=== PATIENT | female | born 1990 | race Caucasian/White ===

== ENCOUNTER 2017-11-28 10:40 | Outpatient (CLI) | payer BC, SELFPAY ==
[2017-11-28 11:12] VITALS: BMI 23.2
[2017-11-28] MEDS: Betamethasone/Betamethasone 30 MG/5 ML Vial 12 MG IM (11:45)
--- NOTE | 2017-11-28 13:02 | OB.TRI.NOTE ---
History of Present Illness Date of Service: 11/28/17 Was patient seen by the physician?: No Reason For Visit: CELESTONE INJECTION Home Medications Medication Instructions Recorded Cetirizine HCl [Zyrtec] 10 mg PO DAILY 11/28/17 Hydroxychloroquine [Plaquenil] 300 mg PO DAILYCM 11/28/17 Levothyroxine [Synthroid] 125 mcg PO DAILY 11/28/17 Vit No.130/Iron/FA 1 tab PO DAILY 11/28/17 [ Tablet] Ursodiol 300 mg PO TID 11/28/17 Allergies soy Allergy (Verified 11/28/17 11:14) Anaphylaxis peanuts Allergy (Uncoded 11/28/17 11:14) Anaphylaxis Impression/Plan 27yo female with cholestasis of - here for second injection of celestone Celestone given Dc home
== END 2017-11-28 11:50 | disposition home or self-care (01) ==
LOC: WPOUT 10:43 → WP 10:44
PROVIDERS: Family Provider Family Medicine; PCP Family Medicine; Visit Provider Obstetrics & Gynecology
DX: O26.619 Liver and biliary tract disorders in pregnancy, unspecified trimester (principal); K83.1 Obstruction of bile duct
CPT/HCPCS: 96372; 99218; G0378; J0702

== ENCOUNTER 2017-11-29 08:30 | Inpatient (IN) | payer BC, SELFPAY ==
[2017-11-29 08:02] VITALS: BMI 23.6
[2017-11-29 08:23] LABS: ROM Internal Control Test YES-OK TO RESULT pt. (Internal QC)
[2017-11-29 08:24] LABS: ROM Patient Test POSITIVE (Negative)
[2017-11-29] MEDS: Lactated Ringers 1,000 ML 50 ML IV ×2 (09:06→12:49)
--- NOTE | 2017-11-29 09:13 | PCM.HP.OB ---
History Date of Admission: 11/29/17 Final RETA: 12/28/17 Final RETA Source: LMP Gestational age: 35 Weeks and 6 Days History of this : @ 35.6 wks with spontaneous ROM at home approximately 5:15am. Pt is dated by her LMP c/w first trimester u/s. Pertinent Past Medical History: PMH: Systemic Lupus Erythematousus, H/o Cholestasis with previous and with this , Hypothyroidism PSX: Thryoid ablation Allergies melon Allergy (Verified 11/29/17 08:14) Shortness of breath soy Allergy (Verified 11/28/17 11:14) Anaphylaxis mulberry Allergy (Uncoded 11/29/17 08:15) Shortness of breath peanuts Allergy (Uncoded 11/28/17 11:14) Anaphylaxis Current Medications Acetaminophen (Tylenol) 325 - 650 mg PO Q4H PRN PRN PRN Reason: PAIN OR FEVER >100.4F Al Hydroxide/Mg Hydroxide (Mylanta Ii) 15 - 30 ml PO Q4H PRN PRN PRN Reason: INDIGESTION Citric Acid/Sodium Citrate (Bicitra) 30 ml PO UD PRN Lactated Ringer's () 1,000 mls @ 50 mls/hr IV .Q20H [facility] Last Admin: 11/29/17 09:06 Dose: 50 mls/hr Nalbuphine HCl (Nubain) 5 - 10 mg IV Q3H PRN PRN PRN Reason: PAIN (4-10/10) Ondansetron HCl (Zofran) 4 mg IV Q8H PRN PRN PRN Reason: NAUSEA Promethazine HCl (Phenergan) 6.25 - 12.5 mg IV Q4H PRN PRN; Protocol PRN Reason: IF NAUSEA PERSISTS Sodium Chloride () 5 - 15 ml IV UD [facility] Last Admin: 11/29/17 09:06 Dose: Not Given Physical Exam General: Alert, Oriented x3 Abdomen: Soft, Non Tender, Gravid Estimated gestational size: Appropriate for gestational size Presentation: Cephalic Cervix Dilation (cm): 3 Station: -2 Effacement (%): 80 Assessment/Plan 27yo @ 35.6 wks with SROM, Cholestasis of 1) Admit to L&D 2) Monitor FHR/TOCO 3) anticipate 4) LFTs 5) GBS neg, HIv neg, Rub imm, Syphils neg, HEP B neg, A+ 6) Augmentation with Pitocin
[2017-11-29 09:19] LABS: Hematocrit 37.9 % (37-47); Hemoglobin 12.9 g/dl (12.0-15.0); Mean Corpuscular Hgb 30.6 pg (27.0-32.0); Mean Platelet Vol. 11.5 fl (6.2-12.0); Platelet Count 173 K/mm3 (150-450); RBC Distribution Width CV 13.8 % (11.6-14.6); RBC Distribution Width SD 45.1 fl (35.1-43.9); Red Blood Count 4.21 M/mm3 (4.2-5.4); White Blood Count 14.3 K/mm3 (4.4-11.0)
--- NOTE | 2017-11-29 09:19 | HP.PCM_ITS ---
History Date of Admission: 11/29/17 Final RETA: 12/28/17 Final RETA Source: LMP Gestational age: 35 Weeks and 6 Days History of this : @ 35.6 wks with spontaneous ROM at home approximately 5:15am. Pt is dated by her LMP c/w first trimester u/s. Pertinent Past Medical History: PMH: Systemic Lupus Erythematousus, H/o Cholestasis with previous and with this , Hypothyroidism PSX: Thryoid ablation Allergies melon Allergy (Verified 11/29/17 08:14) Shortness of breath soy Allergy (Verified 11/28/17 11:14) Anaphylaxis mulberry Allergy (Uncoded 11/29/17 08:15) Shortness of breath peanuts Allergy (Uncoded 11/28/17 11:14) Anaphylaxis Current Medications Acetaminophen (Tylenol) 325 - 650 mg PO Q4H PRN PRN PRN Reason: PAIN OR FEVER >100.4F Al Hydroxide/Mg Hydroxide (Mylanta Ii) 15 - 30 ml PO Q4H PRN PRN PRN Reason: INDIGESTION Citric Acid/Sodium Citrate (Bicitra) 30 ml PO UD PRN Lactated Ringer's () 1,000 mls @ 50 mls/hr IV .Q20H [facility] Last Admin: 11/29/17 09:06 Dose: 50 mls/hr Nalbuphine HCl (Nubain) 5 - 10 mg IV Q3H PRN PRN PRN Reason: PAIN (4-10/10) Ondansetron HCl (Zofran) 4 mg IV Q8H PRN PRN PRN Reason: NAUSEA Promethazine HCl (Phenergan) 6.25 - 12.5 mg IV Q4H PRN PRN; Protocol PRN Reason: IF NAUSEA PERSISTS Sodium Chloride () 5 - 15 ml IV UD [facility] Last Admin: 11/29/17 09:06 Dose: Not Given Physical Exam General: Alert, Oriented x3 Abdomen: Soft, Non Tender, Gravid Estimated gestational size: Appropriate for gestational size Presentation: Cephalic Cervix Dilation (cm): 3 Station: -2 Effacement (%): 80 Assessment/Plan 27yo @ 35.6 wks with SROM, Cholestasis of 1) Admit to L&D 2) Monitor FHR/TOCO 3) anticipate 4) LFTs 5) GBS neg, HIv neg, Rub imm, Syphils neg, HEP B neg, A+ 6) Augmentation with Pitocin
[2017-11-29 09:22] LABS: Scan Indicated on CBC? Y/N NO
[2017-11-29 09:33] LABS: AST(SGOT) 47 U/L (15-37); Alanine Aminotransfer ALT/SGPT 89 U/L (13-56); Albumin, Serum 2.5 g/dL (3.2-5.0); Alkaline Phosphatase 113 U/L (45-117); Bilirubin, Direct 0.08 mg/dL (0.00-0.30); Globulin 3.7 g/dL (2.2-4.2); Protein, Total 6.2 g/dL (6.4-8.2)
[2017-11-29] MEDS: Oxytocin 30 units/NS 500 ml 30 UNITS/500 ML IV.SOLN IV (09:34)
--- NOTE | 2017-11-29 13:00 | PCM.PN.BLA ---
Progress Note pt seen at bedside, Forebag ruptured, clear. Continue to labor- pitocin at 4mu. VE: 7cm/80/-1
[2017-11-29] MEDS: Oxytocin 30 units/NS 500 ml 30 UNITS/500 ML IV.SOLN 334 UNITS IV (13:40)
--- NOTE | 2017-11-29 13:51 | OP.PCM_ITS ---
Vaginal Delivery Maternal Presentation: Spontaneous Rupture of Membranes Amniotic Membrane Rupture Type: Spontaneous at home Rupture of Membrane time: 05 Amniotic Fluid Description: Clear Final RETA: 12/28/17 Final RETA Source: LMP Gestational age: 35 Weeks and 6 Days Date of Procedure: 11/29/17 Pre-Operative Diagnosis: spontaneous ruputure of membranes, early labor , Cholestasis of preg Post-Operative Diagnosis: same, live female Surgery/ Procedure Performed: Spontaneous Vaginal Delivery Type of Anesthesia: None Description of Procedure: of live female infant born without complication. Delayed cord clamping. PEDS present for delivery due to . Presentation: Vertex Placental Delivery Description: Spontaneous Placenta Disposition: [facility] Cord Vessel Description: 3 Vessels Nuchal Cord Compression: Without compression Cord Entanglement: None Estimated Blood Loss: 150 Infant A gender: Female (1 minute): 8 (5 minute): 9 Episiotomy Description: None Laceration: Vaginal Extension/lac - repaired with 3-0 rapide, 1st degree Medications given after delivery: IV Pitocin Complications: None
[2017-11-29] MEDS: Oxytocin 30 units/NS 500 ml 30 UNITS/500 ML IV.SOLN 167 UNITS IV (14:10)
[2017-11-29] MEDS: 0.9% Saline Lock 10 ML Syringe IV (15:30)
[2017-11-29 19:45] VITALS: BP 99/56; PULSE 73; RESP 16; TEMP 37.4; O2SAT 99
[2017-11-29] MEDS: Hydroxychloroquine 200 MG Tablet 300 MG PO (19:52)
[2017-11-29 23:42] VITALS: BP 95/55; PULSE 69; RESP 16; TEMP 37.3; O2SAT 98
[2017-11-30] MEDS: Levothyroxine 125 MCG Tablet PO (05:08)
[2017-11-30 05:13] VITALS: BP 95/50; PULSE 69; RESP 17; TEMP 37.2; O2SAT 99
--- NOTE | 2017-11-30 08:37 | PCM.PN.OB ---
Subjective: pain well controlled, average lochia - Physical Exam General: Alert, Cooperative, No apparent distress Vital Signs Temp Pulse Resp BP Pulse Ox 98.9 F 69 17 95/50 L 99 11/30/17 05:13 11/30/17 05:13 11/30/17 05:13 11/30/17 05:13 11/30/17 05:13 Oxygen Delivery Method Room Air Weight: 60.5 kg Body Mass Index (BMI) 23.6 Intake and Output for Last 24 Hours 11/28/17 11/29/17 11/30/17 23:59 23:59 23:59 Intake Total 200 / 200 Output Total 800 / 800 Balance -600 / -600 Laboratory Tests Past 24 Hrs 11/29/17 11/29/17 11/29/17 08:55 08:55 08:55 WBC 14.3 H RBC 4.21 Hgb 12.9 Hct 37.9 MCV 90.0 MCH 30.6 MCHC 34.0 RDW 13.8 RDW Differential 45.1 H Plt Count 173 MPV 11.5 Total Bilirubin 0.30 Direct Bilirubin 0.08 AST 47 H ALT 89 H Alkaline Phosphatase 113 Total Protein 6.2 L Albumin 2.5 L Globulin 3.7 Blood Type A POSITIVE Antibody Screen NEGATIVE Medical Necessity - Tobacco Use Smoking Status: Never smoker Assessment/Plan PPD#1 doing well infant and doing well likely home tomorrow due to premature
[2017-11-30 09:30] VITALS: BP 94/54; PULSE 83; RESP 16; TEMP 37.2; O2SAT 98
[2017-11-30 10:50] VITALS: BP 96/61
[2017-11-30 11:50] VITALS: BP 101/53; PULSE 82; RESP 16; TEMP 37; O2SAT 98
--- NOTE | 2017-11-30 13:40 | NURSING ---
This library technology instructor reviewed the charting completed by the student nurse, Shamar Abdi and it is complete.
--- NOTE | 2017-11-30 13:44 | NURSING ---
This math and physics instructor reviewed the charting completed by Shamar Abdi, and it is complete.
[2017-11-30 15:38] VITALS: BP 100/48; PULSE 70; RESP 16; TEMP 36.6; O2SAT 99
[2017-11-30 19:53] VITALS: BP 103/56; PULSE 66; RESP 16; TEMP 36.9
[2017-11-30] MEDS: Hydroxychloroquine 200 MG Tablet 300 MG PO (20:21)
[2017-12-01 01:50] VITALS: BP 100/60; PULSE 57; RESP 16; TEMP 36.8
[2017-12-01] MEDS: Levothyroxine 125 MCG Tablet PO (04:52)
[2017-12-01 07:55] VITALS: BP 107/67; PULSE 84; RESP 14; TEMP 36.4
--- NOTE | 2017-12-01 08:08 | PCM.PN.OB ---
Subjective: pt seen at bedside, doing well. pt reports good pain control. lochia mild. +BM. Breast feeding well. - Physical Exam General: Oriented x3 Abdomen: Soft, Non-Distended Extremities: No Calf Tenderness Vital Signs Temp Pulse Resp BP Pulse Ox 98.2 F 84 14 107/67 99 12/01/17 01:50 12/01/17 07:55 12/01/17 07:55 12/01/17 07:55 11/30/17 15:38 Oxygen Delivery Method Room Air Weight: 60.5 kg Body Mass Index (BMI) 23.6 Intake and Output for Last 24 Hours 11/29/17 11/30/17 12/01/17 23:59 23:59 23:59 Intake Total 200 / 200 Output Total 800 / 800 Balance -600 / -600 Medical Necessity - Tobacco Use Smoking Status: Never smoker Assessment/Plan PPD#2, doing well. 1) Routine care dc home today
== END 2017-12-01 10:00 | disposition home or self-care (01) | DRG 775 ==
LOC: WPOUT 08:42
PROVIDERS: Admitting Provider Obstetrics & Gynecology; Family Provider Family Medicine; PCP Family Medicine; Visit Provider Obstetrics & Gynecology
DX: O26.62 Liver and biliary tract disorders in childbirth (principal); K83.1 Obstruction of bile duct; O60.14X0 Preterm labor third trimester with preterm delivery third trimester, not applicable or unspecified; O99.12 Other diseases of the blood and blood-forming organs and certain disorders involving the immune mechanism complicating childbirth; M32.9 Systemic lupus erythematosus, unspecified; O70.0 First degree perineal laceration during delivery; O99.284 Endocrine, nutritional and metabolic diseases complicating childbirth; E03.9 Hypothyroidism, unspecified; Z3A.35 35 weeks gestation of pregnancy; Z79.899 Other long term (current) drug therapy; Z37.0 Single live birth
CPT/HCPCS: 59025; 59050; 80076; 84112; 85027; 86850; 86900; 99218; J7120; A4216; G0378

== ENCOUNTER → 2017-12-15 11:39 | Outpatient (CLI) | payer BC, SELFPAY ==
[2017-12-15 16:17] LABS: Thyroid Stim Hormone (TSH) 0.66 uIU/mL (0.358-3.74)
== END ==
PROVIDERS: Family Provider Family Medicine; PCP Family Medicine; Visit Provider Family Medicine
DX: E03.9 Hypothyroidism, unspecified (principal)
CPT/HCPCS: 36415; 84443

== ENCOUNTER → 2018-04-06 15:48 | Outpatient (CLI) | payer BC, SELFPAY ==
[2018-04-06 19:18] LABS: Free T3 2.2 pg/mL (2.18-3.98); T4 Free Direct 1.23 ng/dL (0.76-1.46); Thyroid Stim Hormone (TSH) 0.02 uIU/mL (0.358-3.74)
== END ==
PROVIDERS: Family Provider Family Medicine; PCP Family Medicine; Visit Provider Family Medicine
DX: E03.9 Hypothyroidism, unspecified (principal)
CPT/HCPCS: 36415; 84439; 84443; 84481

== ENCOUNTER → 2018-04-15 11:28 | Outpatient (CLI) | payer BC, SELFPAY | PROVIDERS: Family Provider Family Medicine; PCP Family Medicine; Visit Provider Family Medicine | DX: R20.0 Anesthesia of skin (principal); E03.9 Hypothyroidism, unspecified | CPT/HCPCS: 36415; 82330 ==

== ENCOUNTER → 2018-07-13 13:36 | Outpatient (CLI) | payer BC, SELFPAY ==
[2018-07-13 16:15] LABS: Free T3 2.5 pg/mL (2.18-3.98); T4 Free Direct 1.14 ng/dL (0.76-1.46); Thyroid Stim Hormone (TSH) 0.08 uIU/mL (0.358-3.74)
--- OUTSIDE RECORDS SUMMARY | 2018-09-08 02:50 | XMS RPT_ITS ---
:1990 Author Organization OHIP Support Name Relationship Address Phone JOSE CRAIG Unavailable [address] + [place], [place] [phone] NOT GIVEN Unavailable Unavailable Unavailable DOMINGO LOMBARDO Unavailable [address] Unavailable [place], [place] [phone] DOMINGO LOMBARDO Unavailable [address] + [place] [address] UE Unavailable Unavailable Unavailable DOMINGO LOMBARDO Unavailable [address] + [place] [address] UE Unavailable Unavailable Unavailable DOMINGO LOMBARDO Unavailable [address] + [place] [address] UE Unavailable Unavailable Unavailable JOSE CRAIG Unavailable [address] + [place], [place] [phone] NOT GIVEN Unavailable Unavailable Unavailable DOMINGO LOMBARDO Unavailable [address] Unavailable [place], [place] [phone] JOSE CRAIG Unavailable [address] + [place], [place] [phone] NOT GIVEN Unavailable Unavailable Unavailable DOMINGO LOMBARDO Unavailable [address] Unavailable [place], [place] [phone] DOMINGO LOMBARDO Unavailable [address] + [place] [address] UE Unavailable Unavailable Unavailable DOMINGO LOMBARDO Unavailable [address] + [place] [address] UE Unavailable Unavailable Unavailable DOMINGO LOMBARDO Unavailable [address] + [place] [address] UE Unavailable Unavailable Unavailable DOMINGO LOMBARDO Unavailable [address] + [place] [address] UE Unavailable Unavailable Unavailable RAFA, JOSE Unavailable [address] + [place], [place] [phone] NOT GIVEN Unavailable Unavailable Unavailable DOMINGO LOMBARDO Unavailable [address] Unavailable [place], [place] [phone] NOT GIVEN Unavailable Unavailable Unavailable JOSE CRAIG Unavailable [address] + [place], [place] [phone] NOT GIVEN Unavailable Unavailable Unavailable DOMINGO LOMBARDO Unavailable [address] Unavailable [place], [place] [phone] Care Team Providers Name Role Phone JO JOSEPH Attending Unavailable JESU OLIVEROS Attending Unavailable SCARLETT VELARDE Referring Unavailable SCARLETT VELARDE Attending Unavailable JO JOSEPH Attending Unavailable JO JOSEPH Attending Unavailable JONATHAN ALEXANDER ([facility]) Attending Unavailable JO JOSEPH Attending Unavailable VIRIDIANA FELIX Attending Unavailable GERALD DEXTER Attending Unavailable JO JOSEPH Referring Unavailable FELISHA KHAN ([facility]) Attending Unavailable JO JOSEPH Attending Unavailable JO JOSEPH Referring Unavailable GERALD DEXTER Attending Unavailable JO JOSEPH Referring Unavailable JO JOSEPH Attending Unavailable ERUM RUEDA ([facility]) Attending Unavailable ANNETTE AZEVEDO CNP Admitting Unavailable ANNETTE AZEVEDO CNP Attending Unavailable ANNETTE AZEVEDO CNP Primary Care Unavailable ANNE DENT Consulting Unavailable PROVIDER, UNKNOWN Consulting Unavailable PROVIDER, UNKNOWN Consulting Unavailable PROVIDER, UNKNOWN Consulting Unavailable ANNETTE AZEVEDO CNP Admitting Unavailable ANNETTE AZEVEDO CNP Attending Unavailable ANNETTE AZEVEDO CNP Primary Care Unavailable ANNE DENT Consulting Unavailable PROVIDER, UNKNOWN Consulting Unavailable PROVIDER, UNKNOWN Consulting Unavailable PROVIDER, UNKNOWN Consulting Unavailable HAYDEN CULP MD Admitting Unavailable HAYDEN CULP MD Attending Unavailable HAYDEN CULP MD Primary Care Unavailable ANNE DENT Consulting Unavailable PROVIDER, UNKNOWN Consulting Unavailable PROVIDER, UNKNOWN Consulting Unavailable PROVIDER, UNKNOWN Consulting Unavailable HAYDEN CULP MD Admitting Unavailable HAYDEN CULP MD Attending Unavailable HAYDEN CULP MD Primary Care Unavailable MADHURI MARTINEZ MD Consulting Unavailable PROVIDER, UNKNOWN Consulting Unavailable PROVIDER, UNKNOWN Consulting Unavailable ERUM RUEDA Admitting Unavailable EBENERUM CARVAJAL Attending Unavailable EBEN, ERUM Primary Care Unavailable MADHURI MARTINEZ MD Consulting Unavailable PROVIDER, UNKNOWN Consulting Unavailable PROVIDER, UNKNOWN Consulting Unavailable HAYDEN CULP MD Admitting Unavailable HAYDEN CULP MD Attending Unavailable HAYDEN CULP MD Primary Care Unavailable MIEDEL, MADHURI Consulting Unavailable PROVIDER, UNKNOWN Consulting Unavailable PROVIDER, UNKNOWN Consulting Unavailable Scarlett Velarde Admitting Unavailable Scarlett Velarde Attending Unavailable Scarlett Velarde Referring Unavailable Miedel, Madhuri Primary Care Unavailable Neyhart-Noonan, Viridiana Attending Unavailable Neyhart-Noonan, Viridiana Referring Unavailable Miedel, Madhuri Primary Care Unavailable Neyhart-Noonan, Viridiana Attending Unavailable Miedel, Madhuri Primary Care Unavailable Neyhart-Noonan, Viridiana Admitting Unavailable Miedel, Madhuri Attending Unavailable Miedel, Madhuri Primary Care Unavailable Miedel, Madhuri Attending Unavailable Miedel, Madhuri Primary Care Unavailable Miedel, Madhuri Attending Unavailable Miedel, Madhuri Primary Care Unavailable Miedel, Madhuri Attending Unavailable Miedel, Madhuri Primary Care Unavailable PROBLEMS PROBLEMS DATE TYPE CONDITION / CODE ATTENDING STATUS SOURCE 07/13/2018 Unknown E03.9 - Miedel, Madhuri Active [facility] Hypothyroidism, Community unspecified / Hospital E03.9(ICD-10) Repository 04/15/2018 Unknown R20.0 - Miedel, Madhuri Active [facility] Anesthesia of Community skin / Hospital R20.0(ICD-10) Repository 01/29/2018 Active Unknown / ERUM RUEDA Active [facility] UNK(Unknown) (HEAT PUMP INSTALLER) [place] Repository 10/15/2017 Active Supervision of NA Active [facility] other high risk [facility] [place] pregnancies, Repository third trimester / O09.893(ICD-10) 11/26/2017 Active 29 weeks NA Active [facility] gestation of [facility] [place] / Repository Z3A.29(ICD-10) 11/26/2017 Active 35 weeks NA Active [facility] gestation of [facility] [place] / Repository Z3A.35(ICD-10) 09/17/2017 Principle HypothyroidismJOLLY DANIELLE Active [facility] Diagnosis unspecified / [facility] E039(ICD-10) Hospital Repository 09/15/2017 Admitting HypothyroidismJOLLY DANIELLE Active [facility] Diagnosis unspecified / [facility] E039(ICD-10) Hospital Repository PROCEDURES PROCEDURES No Procedure Records FoundRESULTS RESULTS CBC Collected: 07/21/2018 Status: F Source: [facility] [place] 12:19 PM [facility] REPOSITORY TYPE CODE TESTS RESULT OUT OF RANGE REFERENCE UNITS LAB CBC(LOINC) CBC Result Comment: CBC-COMPLETE BLOOD COUNT LAB WBC(LOINC) 4.5 - 10.8 x 10EE3/UL WBC 5.7 LAB RBC(LOINC) 4.10 - x 10EE6/UL 5.30 RBC 5.21 LAB HEMOGLOBIN(LOINC) 12.0 - g/dl 16.0 HEMOGLOBIN 14.9 LAB HEMATOCRIT(LOINC) 34.0 - % 46.0 HEMATOCRIT 44.1 LAB MCV(LOINC) 80 - 99 fl MCV 85 LAB MCH(LOINC) 27 - 33 pg MCH 29 LAB MCHC(LOINC) 32 - 36 X10 3 MCHC 34 LAB RDW/CV(LOINC) 12.0 - % 15.6 RDW/CV 12.7 LAB PLATELET(LOINC) 150 - 450 x10EE3/UL PLATELET 207 LAB MPV(LOINC) 6.6 - 10.5 fl MPV 8.9 Result Comment: AUTOMATED DIFFERENTIAL LAB NEUT %(LOINC) 46.0 - 76.0 % NEUT % 59.3 LAB LYMPH %(LOINC) 20.0 - 45.0 % LYMPH % 29.8 LAB MONOS %(LOINC) 0.0 - 10.0 % MONOS % 7.7 LAB EO %(LOINC) 0.0 - 7.0 % EO % 2.3 LAB BASO %(LOINC) 0.0 - 2.0 % BASO % 0.9 LAB Lymph #(LOINC) 0.80 - 2.80 x10EE3/U L Lymph # 1.70 LAB Neut #(LOINC) 1.50 - 7.10 x10EE3/U L Neut # 3.40 LAB [place] #(LOINC) 0.20 - 1.00 x10EE3/U L [place] # 0.40 LAB EO #(LOINC) 0.00 - 0.50 x10EE3/U L EO # 0.10 LAB Baso #(LOINC) 0.00 - 0.10 x10EE3/U L Baso # 0.10 LAB MANUAL DIFF(LOINC) MANUAL DIFF N/A LAB MORPHOLOGY(LOINC ) MORPHOLOGY N/A Result Comment: {CD] Performed By: #### [id number] #### [facility],[address] [place] [address] URINALYSIS Collected: 07/21/2018 Status: F Source: [facility] 12:19 PM [facility] REPOSITORY TYPE CODE TESTS RESULT OUT OF REFERENCE UNITS RANGE LAB URINALYSIS (LOINC) URINALYSIS Result Comment: URINALYSIS LAB Specimen Type(LOINC) Specimen Clean Type catch LAB Color(LOINC) NORMAL: YELLOW Color p.yel LAB Clarity(LOINC) NORMAL: CLEAR Clarity clear LAB ph(LOINC) NORMAL: 5.0-8.0 ph 5 LAB Protein(LOINC) NORMAL: NEGATIVE Protein NEG LAB Glucose(LOINC) NORMAL: NORMAL Glucose NORM LAB Ketone(LOINC) NORMAL: NEGATIVE Ketone NEG LAB Bilirubin(LOINC) NORMAL: NEGATIVE Bilirubin NEG LAB Blood(LOINC) NORMAL: NEGATIVE Blood NEG LAB Urobilinog(LOINC) NORMAL: NORMAL Urobilinog NORM LAB Sp Cub Run(LOINC) NORMAL: 1.010-1.030 Sp [place] 1.020 LAB Nitrite(LOINC) NORMAL: NEGATIVE Nitrite NEG LAB Leukocytes(LOINC) NORMAL: NEGATIVE Leukocytes NEG LAB Microscopic(LOINC ) Microscopic NOT INDICATED Performed By: #### [id number] #### [place] [address] CMP WITH EGFR Collected: 07/21/2018 Status: F Source: [facility] 12:19 PM [facility] REPOSITORY TYPE CODE TESTS RESULT OUT OF RANGE REFERENCE UNITS LAB CMP with eGFR(LOINC) CMP with eGFR Result Comment: COMPREHENSIVE METABOLIC PANEL LAB SODIUM(LOINC) 136 - 145 mmol/l SODIUM 142 LAB POTASSIUM(LOINC) 3.5 - 5.1 mmol/L POTASSIUM 3.9 LAB CHLORIDE(LOINC) 98 - 107 mmol/L CHLORIDE 105 LAB CO2(LOINC) 21.0 - mmol/L 31.0 CO2 30.7 LAB GLUCOSE(LOINC) 74 - 106 mg/dl GLUCOSE Low 61 LAB BUN(LOINC) 6 - 20 mg/dl BUN High 21 LAB CREATININE(LOINC) 0.6 - 1.2 mg/dl CREATININE 0.8 LAB AST/SGOT(LOINC) 13 - 39 U/L AST/SGOT 20 LAB ALK PHOS(LOINC) 38 - 126 U/L ALK PHOS 54 LAB CALCIUM(LOINC) 8.6 - mg/dl 10.2 CALCIUM 9.7 LAB TOTAL 6.4 - 8.3 g/dl PROTEIN(LOINC) TOTAL PROTEIN 7.2 LAB ALBUMIN(LOINC) 3.4 - 4.8 g/dL ALBUMIN 4.4 LAB GLOBULIN(LOINC) 1.5 - 3.8 G/DL GLOBULIN 2.8 LAB A/G RATIO(LOINC) 0.9 - 1.6 A/G RATIO 1.6 LAB TOTAL BILI(LOINC) 0.0 - 1.5 mg/dl TOTAL BILI 0.6 LAB B/C RATIO(LOINC) 0 - 30 ratio B/C RATIO 26 LAB ALT/SGPT(LOINC) 8 - 35 U/L ALT/SGPT 22 LAB ANION GAP(LOINC) 10 - 20 mmol/L ANION GAP 10 LAB AGE(LOINC) years AGE 27 LAB eGFR(LOINC) 60 - 999 ML/MINUTE eGFR >60 LAB eGFR(AA)(LOINC) 60 - 999 ML/MINUTE eGFR(AA) >60 Result Comment: ACCORDING TO THE NATIONAL KIDNEY DISEASE EDUCATION PROGRAM(NKDE), A NORMAL eGFR IS A VALUE GREATER THAN OR EQUAL TO 60 ML/MIN/1.73 SQ METERS. CHRONIC KIDNEY DISEASE: <60mL/MIN/1.73 SQ METERS KIDNEY FAILURE: <15mL/MIN/1.73 SQ METERS THIS TEST SHOULD ONLY BE USED FOR PATIENTS 18 YEARS OF AGE AND OLDER. Performed By: #### [id number] #### [place] [address] URINE CREATININE AND Collected: 07/21/2018 Status: F Source: [facility] PROTEIN RATIO 12:19 PM [facility] REPOSITORY TYPE CODE TESTS RESULT OUT OF REFERENCE UNITS RANGE LAB CREATININE mg/dl UR(LOINC) CREATININE UR 108.2 LAB URINE TOTAL 0.00 - 10.00 mg/dL PROTEIN(LOINC) URINE TOTAL PROTEIN 7.00 LAB PC RATIO(LOINC) 0 - 10 mg/dL PC RATIO 0 Performed By: #### [id number] #### [place] [address] COMPLEMENT C3 [CCL] Collected: 07/21/2018 Status: F Source: [facility] 12:19 [facility] REPOSITORY TYPE CODE TESTS RESULT OUT OF REFERENCE UNITS RANGE LAB COMPLEMENT C3 [CCL](LOINC) COMPLEMENT C3 [CCL] Result Comment: _COMPLEMENT C3 [CCL]_ COMPLEMENT C3 [CCL] Reported: 07/22/2018 14:35 Status=F TEST RESULT FLAG RANGE UNITS C3 Complement 94 86-166 mg/dL 07/22/[email or web address] [address] Hollie Trujillo M.D. [id number] Performed By: #### [id number] #### [facility],[address] [place], [place] [id number] COMPLEMENT C4 [CCL] Collected: 07/21/2018 Status: F Source: [facility] 12:19 [facility] REPOSITORY TYPE CODE TESTS RESULT OUT OF REFERENCE UNITS RANGE LAB COMPLEMENT C4 [CCL](LOINC) COMPLEMENT C4 [CCL] Result Comment: _COMPLEMENT C4 [CCL]_ COMPLEMENT C4 [CCL] Reported: 07/22/2018 14:35 Status=F TEST RESULT FLAG RANGE UNITS C4 Complement 30 13-46 mg/dL 07/22/[email or web address] [facility] [employer] [address] [place] [address] Hollie Trujillo M.D. [id number] Performed By: #### [id number] #### [facility],[address] [place] [address] DNA ANTIBODY [CCL] Collected: 07/21/2018 Status: F Source: [facility] 12:19 PM [facility] REPOSITORY TYPE CODE TESTS RESULT OUT OF REFERENCE UNITS RANGE LAB DNA ANTIBODY [CCL](LOINC) DNA ANTIBODY [CCL] Result Comment: _DNA ANTIBODY [CCL]_ DNA ANTIBODY [CCL] Reported: 07/22/2018 14:35 Status=F TEST RESULT FLAG RANGE UNITS DNA Antibody <12 <30 IU/mL 07/22/[email or web address].ATLR Negative for ds DNA Antibodies Negative: <30 IU/mL Equivocal: 30-74 IU/mL Positive: >74 IU/mL [employer] [address] [place] [id number] Hollie Trujillo M.D. [id number] Performed By: #### [id number] #### [facility],[address] [place] [id number] C3 COMPLEMENT Collected: 07/21/2018 Status: F Source: [facility] 12:19 PM [facility] REFERENCE REPOSITORY TYPE CODE TESTS RESULT OUT OF REFERENCE UNITS RANGE LAB C3COMP(JOSÉ 86-166 mg/dL NC) C3 Complement 94 Performed By: #### DNAAB #### [facility] Immunology [address] [place] [address] #### C3COMP, C4COMP #### [facility] Routine Lab [address] [place] [address] C4 COMPLEMENT Collected: 07/21/2018 Status: F Source: [place] 12:19 PM [facility] REFERENCE REPOSITORY TYPE CODE TESTS RESULT OUT OF REFERENCE UNITS RANGE LAB C4COMP(JOSÉ 13-46 mg/dL NC) C4 Complement 30 Performed By: #### DNAAB #### [facility] Immunology [address] [place], [place] [id number] #### C3COMP, C4COMP #### [facility] Routine Lab [address] [place], [place] [phone] DNA ANTIBODY Collected: 07/21/2018 Status: F Source: [place] 12:19 PM [facility] REFERENCE REPOSITORY TYPE CODE TESTS RESULT OUT OF REFERENCE UNITS RANGE LAB DNAAB1(LOIN <30 IU/mL C) DNA Antibody <12 Performed By: #### DNAAB #### [facility] [address] [place], [place] [id number] #### C3COMP, C4COMP #### [facility] Routine Lab [address] [place], [place] [id number] FREE T3 Collected: 07/13/2018 Status: F Source: [place] 1:37 PM [facility] REPOSITORY TYPE CODE TESTS RESULT OUT OF RANGE REFERENCE UNITS LAB L501.98721 2.18-3.98 pg/mL Normal FREE T3 2.5 Performed By: #### L501.46710, L501.9520, L506.0400 #### [facility] [address] [facility] [place], [address] THYROID STIM HORMONE Collected: 07/13/2018 Status: F Source: [place] (TSH) 1:37 PM [facility] REPOSITORY TYPE CODE TESTS RESULT OUT OF RANGE REFERENCE UNITS LAB L501.9520 0.358-3.74 uIU/mL Low TSH 0.08 Performed By: #### L501.29153, L501.9520, L506.0400 #### [facility] [address] [facility] [place], [address] T4 FREE DIRECT Collected: 07/13/2018 Status: F Source: [place] 1:37 PM [facility] REPOSITORY TYPE CODE TESTS RESULT OUT OF RANGE REFERENCE UNITS LAB L506.0400 0.76-1.46 ng/dL Normal T4 FREE 1.14 DIRECT Performed By: #### L501.07712, L501.9520, L506.0400 #### [facility] [address] [facility] [place], [address] CALCIUM IONIZED Collected: 04/15/2018 Status: F Source: [place] 11:30 AM [facility] REPOSITORY TYPE CODE TESTS RESULT OUT OF RANGE REFERENCE UNITS LAB L3100.9600 4.5-5.6 mg/dL Normal IONIZED CA 5.3 Result Comment: Performed at: - [facility] [id number] Rehab Nurse: Volodymyr Brennan PhD, Phone: [phone] Performed By: #### L3100.9600 #### [facility] (refer to report for specific site) refer to report for address and phone number FREE T3 Collected: 04/06/2018 Status: F Source: [place] 3:50 PM [facility] REPOSITORY TYPE CODE TESTS RESULT OUT OF RANGE REFERENCE UNITS LAB L501.84271 2.18-3.98 pg/mL Normal FREE T3 2.2 Performed By: #### L501.41287, L501.9520, L506.0400 #### [facility] [address] [facility] [place], [address] THYROID STIM HORMONE Collected: 04/06/2018 Status: F Source: [place] (TSH) 3:50 PM [facility] REPOSITORY TYPE CODE TESTS RESULT OUT OF RANGE REFERENCE UNITS LAB L501.9520 0.358-3.74 uIU/mL Low TSH 0.02 Performed By: #### L501.87698, L501.9520, L506.0400 #### [facility] [address] [place], [address] T4 FREE DIRECT Collected: 04/06/2018 Status: F Source: [place] 3:50 PM [facility] REPOSITORY TYPE CODE TESTS RESULT OUT OF RANGE REFERENCE UNITS LAB L506.0400 0.76-1.46 ng/dL Normal T4 FREE 1.23 DIRECT Performed By: #### L501.12390, L501.9520, L506.0400 #### [facility] [address] [facility] [place], [address] T4-FREE (FREE Collected: 01/29/2018 Status: F Source: [facility] THYROXINE) 6:54 PM [facility] REPOSITORY TYPE CODE TESTS RESULT OUT OF RANGE REFERENCE UNITS LAB T4 0.61 - 1.12 ng/dl FREE(LOINC) High T4 FREE 1.29 Result Comment: *SPECIMENS FROM PATIENTS WHO ARE UNDERGOING BIOTIN THERAPY AND/OR INGESTING BIOTIN SUPPLEMENTS MAY HAVE FALSE HIGH RESULTS. Performed By: #### [id number] #### [facility],[address] [place] [address] TSH Collected: 01/29/2018 Status: F [facility] REPOSITORY TYPE CODE TESTS RESULT OUT OF RANGE REFERENCE UNITS LAB TSH(LOINC) 0.34 - 5.60 uIU/ml Low TSH 0.01 Performed By: #### [id number] #### [facility],[address] [place] [address] T4 (THYROXINE) TOTAL Collected: 01/29/2018 Status: F Source: [facility] 6:54 [facility] REPOSITORY TYPE CODE TESTS RESULT OUT OF RANGE REFERENCE UNITS LAB T4 (THYROXINE) TOTAL(LOINC ) T4 (THYROXINE) TOTAL Result Comment: THYROXINE(T4) LAB T4(LOINC) 6.0 - 12.2 ug/dl T4 8.5 Performed By: #### [id number] #### [facility],[address] [place] [address] SGPT (ALT) Collected: 01/29/2018 Status: F Source: [place] [id number] [place] [address] REPOSITORY TYPE CODE TESTS RESULT OUT OF RANGE REFERENCE UNITS LAB ALT/SGPT(LO 8 - 35 U/L INC) ALT/SGPT 23 Performed By: #### [id number] #### [place] [address] SGOT (AST) Collected: 01/29/2018 Status: F Source: [address] REPOSITORY TYPE CODE TESTS RESULT OUT OF RANGE REFERENCE UNITS LAB AST/SGOT(LO 13 - 39 U/L INC) AST/SGOT 19 Performed By: #### [id number] #### [place] [address] T3, FREE Collected: 01/29/2018 Status: F Source: [place] [id number]:[address] [place] [address] REPOSITORY TYPE CODE TESTS RESULT OUT OF RANGE REFERENCE UNITS LAB T3, FREE(LOINC) T3, FREE Result Comment: _T3, FREE_ T3, FREE Reported: 02/02/2018 22:59 Status=F TEST RESULT FLAG RANGE UNITS T3, FREE 3.3 2.3-4.2 pg/mL 02/02/18.2311.rfl.LYN.AMRR .3051-0 Test Performed by [employer], [employer] [facility], [address] [place] [address] Javier Khan M.D., Ph.D., Director of Laboratories , [facility] [id number] Performed By: #### [id number] #### [facility],[address] [place] [address] PROGRESS Observed: 01/29/2018 Status: COMPLETED Source: [place] 2:47 PM [facility]IN [facility] REPOSITORY HNO ID: [id number] Author: Erum Jean) Eben Service: (none) Author Type: Nurse Practitioner Type: Progress Notes Filed: 01/29/2018 3:06 PM Note Text: VISIT Roxann Lombardo is a 27 year old year old here for visit. Delivery Summary: Vaginal delivery Recovery: Feeding: Breast feeding problems: None Menses since delivery: Not resumed Menstrual pattern prior to : Regular periods [place] since delivery: Not resumed Depression: denies symptoms of depression. See depression screening tab. Emotional support: Yes, family Bowel symptoms: Negative for abdominal discomfort, blood in stools or black stools and change in bowel habits Bladder symptoms: No dysuria, gross hematuria, urinary frequency, urinary urgency, or incontinence Other issues: None Last Pap: 2017 normal HPV: N/A PAST MEDICAL HISTORY Diagnosis Date - Cholestasis of , antepartum with 1st - Hypothyroidism hisdtory of treatment for Graves Disease - SLE (systemic lupus erythematosus) (HCC) PAST SURGICAL HISTORY Procedure Laterality Date - [place] THYROID ABLATION THERAPY 92429 FAMILY HISTORY Problem Relation Age of Onset - IBS [OTHER] Father - Diverticulitis [OTHER] Maternal Grandmother - Macular degeneration [OTHER] Maternal Grandmother - Heart Maternal Grandfather - Cancer Maternal Grandfather Pancreatic - Psychiatry Paternal Grandfather Bipolar - Thyroid Other - Cancer Other ? ovarian SOCIAL HISTORY Social History Marital status: Spouse name: Domingo Years of education: 13 Number of children: 1 Occupational History Occupation Employer [employer] Social History Main Topics Smoking status: Never Smoker Smokeless tobacco: Never Used Alcohol use: No Drug use: No Sexual activity: Yes Partners with: Male PHYSICAL EXAMINATION: BP 96/56 Wt 111 lb (50.3kg) GENERAL: pleasant, female in no apparent distress HEENT: Normocephalic, atraumatic, mucus membranes moist and no lesions NECK: Supple, full range of motion, no adenopathy and thyroid normal DERMATOLOGY: Normal, without lesions, non-icteric and non-hirsute BREAST: soft, non-tender, symmetric, no dominant mass, normal nipple-areolar complex, no lymphadenopathy and no nipple discharge CHEST: Normal inspiratory effort ABDOMEN: soft, non-tender and no masses. . PELVIC: external genitalia normal, normal Bartholin's glands, urethra, Longoria's glands, no vulvar lesions, no cervical lesions, good vaginal support, physiologic discharge present, normal appearing perineal body and perianal region, well estrogenized BIMANUAL: uterus normal size, shape and consistency, no adnexal masses, non-tender and no cervical motion tenderness NEURO: alert and oriented x3,exam grossly non-focal EXTREMITIES: normal ASSESSMENT AND PLAN: 27 year old status post with normal course. Contraception plan: condoms weight gain: Goal set for 10% of body weight over 6 months. Discussed diet and exercise. Thyroid and AST/ALT ordered-pt having done at another hospital Follow up: RTC for annual exams and PRN Erum Rueda APRN.CNP PROGRESS Observed: 01/29/2018 Status: COMPLETED Source: [place] 2:47 PM [facility] REPOSITORY O ID: [id number] Author: Erum Rueda Service: (none) Author Type: Nurse Practitioner Type: Progress Notes Filed: 01/29/2018 3:06 PM Note Text: This note was created using NoteWriter. Subjective Roxann Lombardo is a 27 year old female. Review of Systems Objective BP 96/56 Wt 111 lb (50.3 kg) BMI 19.35 kg/m? Physical Exam Assessment and Plan CBC Collected: 01/21/2018 Status: F Source: [facility] [place] 12:40 PM [facility] REPOSITORY TYPE CODE TESTS RESULT OUT OF RANGE REFERENCE UNITS LAB CBC(LOINC) CBC Result Comment: CBC-COMPLETE BLOOD COUNT LAB WBC(LOINC) 4.5 - 10.8 x 10EE3/UL WBC 6.2 LAB RBC(LOINC) 4.10 - x 10EE6/UL 5.30 RBC 4.92 LAB HEMOGLOBIN(LOINC) 12.0 - g/dl 16.0 HEMOGLOBIN 14.6 LAB HEMATOCRIT(LOINC) 34.0 - % 46.0 HEMATOCRIT 42.2 LAB MCV(LOINC) 80 - 99 fl MCV 86 LAB MCH(LOINC) 27 - 33 pg MCH 30 LAB MCHC(LOINC) 32 - 36 X10 3 MCHC 35 LAB RDW/CV(LOINC) 12.0 - % 15.6 RDW/CV 12.5 LAB PLATELET(LOINC) 150 - 450 x10EE3/UL PLATELET 211 LAB MPV(LOINC) 6.6 - 10.5 fl MPV 9.0 Result Comment: AUTOMATED DIFFERENTIAL LAB NEUT %(LOINC) 46.0 - 76.0 % NEUT % 57.0 LAB LYMPH %(LOINC) 20.0 - 45.0 % LYMPH % 26.3 LAB MONOS %(LOINC) 0.0 - 10.0 % MONOS % 7.7 LAB EO %(LOINC) 0.0 - 7.0 % EO % High 8.4 LAB BASO %(LOINC) 0.0 - 2.0 % BASO % 0.6 LAB Lymph #(LOINC) 0.80 - 2.80 x10EE3/U L Lymph # 1.60 LAB Neut #(LOINC) 1.50 - 7.10 x10EE3/U L Neut # 3.60 LAB [place] #(LOINC) 0.20 - 1.00 x10EE3/U L [place] # 0.50 LAB EO #(LOINC) 0.00 - 0.50 x10EE3/U L EO # 0.50 LAB Baso #(LOINC) 0.00 - 0.10 x10EE3/U L Baso # 0.00 LAB MANUAL DIFF(LOINC) MANUAL DIFF N/A LAB MORPHOLOGY(LOINC ) MORPHOLOGY N/A Result Comment: {CD] Performed By: #### [id number] #### [facility],[address] [place] [address] URINE TOTAL PROTEIN Collected: 01/21/2018 Status: F Source: [facility] [place] 12:40 PM [facility] REPOSITORY TYPE CODE TESTS RESULT OUT OF REFERENCE UNITS RANGE LAB URINE TOTAL 0.00 - 10.00 mg/dL PROTEIN(LOIN C) High URINE TOTAL 14.00 PROTEIN Performed By: #### [id number] #### [facility],[address] [place] [address] URINALYSIS Collected: 01/21/2018 Status: F Source: [facility] 12:40 PM [facility] REPOSITORY TYPE CODE TESTS RESULT OUT OF REFERENCE UNITS RANGE LAB URINALYSIS (LOINC) URINALYSIS Result Comment: URINALYSIS LAB Specimen Type(LOINC) Specimen Type UNSPECIFIED LAB Color(LOINC) NORMAL: YELLOW Color farrah LAB Clarity(LOINC) NORMAL: CLEAR Clarity clear LAB ph(LOINC) NORMAL: 5.0-8.0 ph 5 LAB Protein(LOINC) NORMAL: NEGATIVE Protein NEG LAB Glucose(LOINC) NORMAL: NORMAL Glucose NORM LAB Ketone(LOINC) NORMAL: NEGATIVE Ketone NEG LAB Bilirubin(LOINC) NORMAL: NEGATIVE NEG Bilirubin LAB Blood(LOINC) NORMAL: NEGATIVE Blood 10 Abnormal LAB Urobilinog(LOINC NORMAL: ) NORMAL NORM Urobilinog LAB Sp NORMAL: [place](LOINC) 1.010-1.030 Sp 1.025 [place] LAB Nitrite(LOINC) NORMAL: NEGATIVE Nitrite NEG LAB Leukocytes(LOINC NORMAL: ) NEGATIVE 100 Abnormal Leukocytes LAB Microscopic(LOIN C) SEE Microscopic BELOW Result Comment: MICROSCOPIC LAB Wbc(LOINC) 0-5/hpf Wbc 1-5 LAB Rbc(LOINC) 0-3/hpf Rbc 0-5 LAB Casts(LOINC) Casts NONE LAB Crystals(LOINC) Crystals NONE LAB Amorphous(LOINC) Amorphous NONE LAB Bacteria(LOINC) Bacteria TRACE LAB Epi Cells(LOINC) Epi Cells OCC LAB Mucous(LOINC) Mucous 1+ LAB Yeast(LOINC) Yeast NONE Performed By: #### [id number] #### [facility],[address] [place] [address] CMP WITH EGFR Collected: 01/21/2018 Status: F Source: [facility] 12:40 PM [facility] REPOSITORY TYPE CODE TESTS RESULT OUT OF RANGE REFERENCE UNITS LAB CMP with eGFR(LOINC) CMP with eGFR Result Comment: COMPREHENSIVE METABOLIC PANEL LAB SODIUM(LOINC) 136 - 145 mmol/l SODIUM 141 LAB POTASSIUM(LOINC) 3.5 - 5.1 mmol/L POTASSIUM 3.9 LAB CHLORIDE(LOINC) 98 - 107 mmol/L CHLORIDE 105 LAB CO2(LOINC) 21.0 - mmol/L 31.0 CO2 28.3 LAB GLUCOSE(LOINC) 74 - 106 mg/dl GLUCOSE 81 LAB BUN(LOINC) 6 - 20 mg/dl BUN 20 LAB CREATININE(LOINC) 0.6 - 1.2 mg/dl CREATININE 0.8 LAB AST/SGOT(LOINC) 13 - 39 U/L AST/SGOT 16 LAB ALK PHOS(LOINC) 38 - 126 U/L ALK PHOS 59 LAB CALCIUM(LOINC) 8.6 - mg/dl 10.2 CALCIUM 9.2 LAB TOTAL 6.4 - 8.3 g/dl PROTEIN(LOINC) TOTAL PROTEIN 6.4 LAB ALBUMIN(LOINC) 3.4 - 4.8 g/dL ALBUMIN 4.0 LAB GLOBULIN(LOINC) 1.5 - 3.8 G/DL GLOBULIN 2.4 LAB A/G RATIO(LOINC) 0.9 - 1.6 A/G High RATIO 1.7 LAB TOTAL BILI(LOINC) 0.0 - 1.5 mg/dl TOTAL BILI 0.5 LAB B/C RATIO(LOINC) 0 - 30 ratio B/C RATIO 25 LAB ALT/SGPT(LOINC) 8 - 35 U/L ALT/SGPT 21 LAB ANION GAP(LOINC) 10 - 20 mmol/L ANION GAP 12 LAB AGE(LOINC) years AGE 27 LAB eGFR(LOINC) 60 - 999 ML/MINUTE eGFR >60 LAB eGFR(AA)(LOINC) 60 - 999 ML/MINUTE eGFR(AA) >60 Result Comment: ACCORDING TO THE NATIONAL KIDNEY DISEASE EDUCATION PROGRAM(NKDE), A NORMAL eGFR IS A VALUE GREATER THAN OR EQUAL TO 60 ML/MIN/1.73 SQ METERS. CHRONIC KIDNEY DISEASE: <60mL/MIN/1.73 SQ METERS KIDNEY FAILURE: <15mL/MIN/1.73 SQ METERS THIS TEST SHOULD ONLY BE USED FOR PATIENTS 18 YEARS OF AGE AND OLDER. Performed By: #### [id number] #### [facility],[address] [place] [address] URINE CREATININE,RANDOM Collected: Status: F Source: [place] 01/21/2018 12:40 PM [facility] REPOSITORY TYPE CODE TESTS RESULT OUT OF REFERENCE UNITS RANGE LAB CREATININE mg/dl UR(LOINC) CREATININE UR 173.9 Performed By: #### [id number] #### [facility],[address] [place], [place] [id number] C3, COMPLEMENT [QUEST] Collected: 01/21/2018 Status: F [facility] REPOSITORY TYPE CODE TESTS RESULT OUT OF REFERENCE UNITS RANGE LAB C3, COMPLEMENT [QUEST](LOINC) C3, COMPLEMENT [QUEST] Result Comment: _C3, COMPLEMENT_ COMPLEMENT COMPONENT C3C Reported: 01/23/2018 15:06 Status=F TEST RESULT FLAG RANGE UNITS COMPLEMENT COMPONENT C3C 73 L 83-193 mg/dL 01/23/18.1518.rfl.COMPLETE.AMRR .4485-9 Test Performed by [employer], [employer] [facility], [address] [place] [id number] Javier Khan M.D., Ph.D., Director of Laboratories , [place] [id number] Performed By: #### [id number] #### [facility],[address] [place], [place] [id number] C4, COMPLEMENT [QUEST] Collected: 01/21/2018 Status: F [facility] REPOSITORY TYPE CODE TESTS RESULT OUT OF REFERENCE UNITS RANGE LAB C4, COMPLEMENT [QUEST](LOINC) C4, COMPLEMENT [QUEST] Result Comment: _C4, COMPLEMENT_ COMPLEMENT COMPONENT C4C Reported: 01/23/2018 15:06 Status=F TEST RESULT FLAG RANGE UNITS COMPLEMENT COMPONENT C4C 27 15-57 mg/dL 01/23/18.1518.rfl.COMPLETE.AMRR .4498-2 Test Performed by [facility], [employer] [facility], [address] [place] [id number] Javier Khan M.D., Ph.D., Director of Laboratories , [facility] [id number] Performed By: #### [id number] #### [facility],[address] [place] [address] DNA DOUBLE STRANDED Collected: 01/21/2018 Status: F Source: [facility] AB [QUEST] 12:40 PM [facility] REPOSITORY TYPE CODE TESTS RESULT OUT OF REFERENCE UNITS RANGE LAB DNA DOUBLE STRANDED AB [QUEST](LOINC) DNA DOUBLE STRANDED AB [QUEST] Result Comment: _DNA DOUBLE STRANDED AB_ DNA (DS) ANTIBODY Reported: 01/25/2018 17:18 Status=F TEST RESULT FLAG RANGE UNITS DNA (DS) ANTIBODY 1 <=4 IU/mL 01/25/18.1730.rfl.COMPLETE.AMRR .5130-0 Value Interpretation <or=4 IU/mL: Negative 5 - 9 IU/mL: Indeterminate >or=10 IU/mL: Positive Test Performed by [employer], [employer], [address] [place] [id number] Javier Khan M.D., Ph.D., Director of Laboratories , [facility] [id number] Performed By: #### [id number] #### [facility],[address] [place] [address] THYROID STIM HORMONE Collected: 12/15/2017 Status: F Source: [place] (TSH) 11:41 AM [facility] REPOSITORY TYPE CODE TESTS RESULT OUT OF RANGE REFERENCE UNITS LAB L501.9520 0.358-3.74 uIU/mL Normal TSH 0.66 Performed By: #### L501.9520 #### [facility] [address] [place] [address], [id number] PROGRESS Observed: 12/02/2017 Status: COMPLETED Source: [place] 3:51 PM [facility] REPOSITORY HNO ID: [id number] Author: Celsa Marquez LPN Service: (none) Author Type: (none) Type: Progress Notes Filed: 12/02/2017 3:52 PM Note Text: Pt delivered via at [facility] on 11/28/[address] Noonan. See OB Outcome note Celsa Marquez LPN HOSP Observed: 12/02/2017 Status: COMPLETED Source: [place] 12:00 AM [facility] REPOSITORY Patient Update (WOOB) ROXANN LOMBARDO ([id number]) 1990 F Date Time Provider Department 12/02/17 VIRIDIANA FELIX During your visit today, we recorded the following information about you: Celsa Marquez LPN 12/02/2017 3:52 PM Signed Pt delivered via at [facility] on 11/28/[address] Noonan. See OB Outcome note Celsa Naye BONDS Allergies As of Date: 12/02/2017 Noted Allergy Reaction MELON 05/11/2017 10 - Anaphylaxis 12 - Shortness of Breath Comments: cantaloupe, watermelon MULBERRY 05/11/2017 14 - Other: See Comments Comments: tested positive NUT - UNSPECIFIED 05/11/2017 9 - Itching 12 - Shortness of Breath Comments: peanuts, walnuts, hazelnuts , soy SEASONAL ALLERGIES 05/11/2017 14 - Other: See Comments SOY 05/11/2017 7 - Swelling 12 - Shortness of Breath Date Reviewed: 11/27/2017 Reviewed by: Gerald Dexter - Fully Assessed Prescriptions as of 12/02/2017 Sig: LEVOTHYROXINE 125 MCG TABLET Take 1 tablet by mouth once d* URSODIOL 300 MG CAPSULE Take 1 capsule by mouth three* BLOOD-GLUCOSE METER 1 Each as directed. BLOOD SUGAR DIAGNOSTIC STRIPS 1 Strip four times daily. Use* LANCETS 1 Each four times daily. Use * URINE GLUCOSE-KETONES TEST ST* 1 Strip four times daily. VITAMIN,CALCIUM,MINE* Take 1 tablet by mouth. HYDROXYCHLOROQUINE 200 MG TAB* Take 300 mg by mouth once criss* ZYRTEC ORAL Take by mouth. Problem List As Of Date 12/02/2017 Noted Resolved History of liver disease [Z87.19] INVALID FOR* More... History of systemic lupus erythematosus (SLE) [*INVALID FOR* More... History of hypothyroidism [Z86.39] INVALID FOR* More... Supervision of other high risk pregnancies, thi*INVALID FOR* Supervision of other normal , antepart*INVALID FOR* More... Encounter Status:Closed by CELSA MARQUEZ LPN on 12/02/17 OPERATIVE REPORT Observed: 11/29/2017 Status: F Source: [place] 1:51 PM [facility] REPOSITORY [facility] Medical Records Department [address] [place] [address] Operative Report 11/29/17 1349 MR#: [id number] Acct: [id number] Name: ROXANN LOMBARDO Rep #: [id number] : 1990 27 From: Viridiana Noonan MD PCP: Madhuri Martinez MD Status: AD[facility] IN [id number] Maternal Presentation: Spontaneous Rupture of Membranes Amniotic Membrane Rupture Type: Spontaneous at home Rupture of Membrane time: 0515 Amniotic Fluid Description: Clear Final RETA: 12/28/17 Final RETA Source: LMP Gestational age: 35 Weeks and 6 Days Date of Procedure: 11/29/17 Pre-Operative Diagnosis: spontaneous ruputure of membranes, early labor, Cholestasis of preg Post-Operative Diagnosis: same, live female infant Surgery/ Procedure Performed: Spontaneous Vaginal Delivery Type of Anesthesia: None Description of Procedure: of live female infant born without complication. Delayed cord clamping. PEDS present for delivery due to . Presentation: Vertex Placental Delivery Description: Spontaneous Placenta Disposition: [facility] Cord Vessel Description: 3 Vessels Nuchal Cord Compression: Without compression Cord Entanglement: None Estimated Blood Loss: 150 Infant A gender: Female (1 minute): 8 (5 minute): 9 Episiotomy Description: None Laceration: Vaginal Extension/lac - repaired with 3-0 rapide, 1st degree Medications given after delivery: IV Pitocin Complications: None 11/29/17 1351 <Electronically signed by Viridiana Noonan MD> Date Viridiana Glynn MD CC: Viridiana Glynn MD; Madhuri Martinez MD Signed HISTORY AND PHYSICAL Observed: 11/29/2017 Status: F Source: [place] EXAM 9:19 AM [facility] REPOSITORY [facility] Medical Records Department [address] [place] [address] History and Physical 11/29/17912 MR#: [id number] Acct: [id number] Name: ROXANN LOMBARDO Rep #: [id number] : 1990 27 From: Viridiana Noonan MD PCP: Madhuri Martinez MD Status: ADM IN Y Location: [place] [address] History Date of Admission: 11/29/17 Final RETA: 12/28/17 Final RETA Source: LMP Gestational age: 35 Weeks and 6 Days History of this : @ 35.6 wks with spontaneous ROM at home approximately 5:15am. Pt is dated by her LMP c/w first trimester u/s. Pertinent Past Medical History: PMH: Systemic Lupus Erythematousus, H/o Cholestasis with previous and with this , Hypothyroidism PSX: Thryoid ablation Allergies melon Allergy (Verified 11/29/17 08:14) Shortness of breath soy Allergy (Verified 11/28/17 11:14) Anaphylaxis mulberry Allergy (Uncoded 11/29/17 08:15) Shortness of breath peanuts Allergy (Uncoded 11/28/17 11:14) Anaphylaxis Current Medications Acetaminophen (Tylenol) 325 - 650 mg PO Q4H PRN PRN PRN Reason: PAIN OR FEVER >100.4F Al Hydroxide/Mg Hydroxide (Mylanta Ii) 15 - 30 ml PO Q4H PRN PRN PRN Reason: INDIGESTION Citric Acid/Sodium Citrate (Bicitra) 30 ml PO UD PRN Lactated Ringer's () 1,000 mls @ 50 mls/hr IV .Q20H HETAL Last Admin: 11/29/17 09:06 Dose: 50 mls/hr Nalbuphine HCl (Nubain) 5 - 10 mg IV Q3H PRN PRN PRN Reason: PAIN (4-10/10) Ondansetron HCl (Zofran) 4 mg IV Q8H PRN PRN PRN Reason: NAUSEA Promethazine HCl (Phenergan) 6.25 - 12.5 mg IV Q4H PRN PRN; Protocol PRN Reason: IF NAUSEA PERSISTS Sodium Chloride () 5 - 15 ml IV UD HETAL Last Admin: 11/29/17 09:06 Dose: Not Given Physical Exam General: Alert, Oriented x3 Abdomen: Soft, Non Tender, Gravid Estimated gestational size: Appropriate for gestational size Presentation: Cephalic Cervix Dilation (cm): 3 Station: -2 Effacement (%): 80 Assessment/Plan 27yo @ 35.6 wks with SROM, Cholestasis of 1) Admit to L AND D 2) Monitor FHR/TOCO 3) anticipate 4) LFTs 5) GBS neg, HIv neg, Rub imm, Syphils neg, HEP B neg, A+ 6) Augmentation with Pitocin 11/29/17918 <Electronically signed by Viridiana Noonan MD> Date Viridiana Glynn MD Cosigner Signature: Date (if applicable) CC: Viridiana Glynn MD; Madhuri Martinez MD Signed CBC-COMPLETE BLOOD CNT Collected: 11/29/2017 Status: F Source: [place] NO DIFF 8:55 AM [facility] REPOSITORY TYPE CODE TESTS RESULT OUT OF RANGE REFERENCE UNITS LAB L100.1000 4.4-11.0 K/mm3 High WBC 14.3 LAB L100.1200 4.2-5.4 M/mm3 Normal RBC 4.21 LAB L100.1300 12.0-15.0 g/dl Normal HGB 12.9 LAB L100.1400 37-47 % Normal HCT 37.9 LAB L100.1500 81-99 fL Normal MCV 90.0 LAB L100.1600 27.0-32.0 pg Normal MCH 30.6 LAB L100.1700 32-36 g/gl Normal MCHC 34.0 LAB L100.1810 11.6-14.6 % Normal RDW CV 13.8 LAB L100.1820 35.1-43.9 fl High RDW SD 45.1 LAB L100.1900 150-450 K/mm3 Normal PLT 173 LAB L100.2000 6.2-12.0 fl Normal MPV 11.5 Performed By: #### L100.0500 #### [facility] [address] [place], [place], [id number] LIVER PROFILE Collected: 11/29/2017 Status: F Source: [place] 8:55 AM [facility] REPOSITORY TYPE CODE TESTS RESULT OUT OF RANGE REFERENCE UNITS LAB L501.1500 6.4-8.2 g/dL Low T PROT 6.2 LAB L501.1800 3.2-5.0 g/dL Low ALB 2.5 LAB L501.1950 2.2-4.2 g/dL Normal GLOB 3.7 LAB L501.4100 15-37 U/L High AST 47 LAB L501.4305 45-117 U/L Normal ALK P 113 LAB L501.4405 13-56 U/L High ALT 89 LAB L501.4600 0.20-1.00 mg/dL Normal T BILI 0.30 LAB L501.4700 0.00-0.30 mg/dL Normal D BILI 0.08 Performed By: #### L500.3400 #### [facility] [address] [place], [place], [address] TYPE AND SCREEN Collected: 11/29/2017 Status: F Source: [place] 8:55 AM [facility] REPOSITORY Order Comment: Reason for Type AND Screen/Red Cells: ROUTINE TYPE CODE TESTS RESULT OUT OF RANGE REFERENCE UNITS LAB B10.0800 A Normal BLOOD TYPE GEL POSITIVE LAB B100.4000 Normal Antibody NEGATIVE Screen Performed By: #### B101.7450 #### [facility] [address] [place], [address] (ROM) RUPTURE OF Collected: 11/29/2017 Status: F Source: [facility] 8:00 AM [facility] REPOSITORY TYPE CODE TESTS RESULT OUT OF REFERENCE UNITS RANGE LAB L205.1310 Negative High ROM POSITIVE Result Comment: Amniotic fluid present indicates rupture of Membranes. [facility] 0823 Piedad Sin. REPORT READ BACK BY SAME . Performed By: #### L205.1000 #### [facility] [address] [place], [address] PROGRESS Observed: 11/27/2017 Status: COMPLETED Source: [place] 1:36 PM [facility] REPOSITORY HNO ID: [id number] Author: Gerald Dexter Service: (none) Author Type: Physician Type: Progress Notes Filed: 11/27/2017 1:39 PM Note Text: A garza intrauterine has been noted. EGA = 35w4d Estimated Date of Delivery: 12/28/17 The heart rate is regular without dysrhythmias and falls within the normal range for gestational age. BPP = 8/8 There is no evidence of hydrops. Normal NEHA The placenta is fundal. No maternal structural anatomical uterine of adnexal abnormalities are noted. The limitations of ultrasound have been addressed with the patient. The patient has elevated liver enzymes and classical IHCP itching. Bile salts results are pending Component Latest Ref Rng AND Units 11/26/2017 Albumin 3.9 - 4.9 g/dL 3.2 (L) Bilirubin, Total 0.2 - 1.3 mg/dL 0.3 Bilirubin, Conjug <0.2 mg/dL <0.2 Alkaline Phosphatase 32 - 117 U/L 115 AST 13 - 35 U/L 40 (H) ALT 7 - 38 U/L 70 (H) Protein, Total 6.3 - 8.0 g/dL 6.4 RECOMMENDATIONS: - Delivery at 36 weeks - I discussed the plan with Dr juanito Dexter MD PROGRESS Observed: 11/26/2017 Status: COMPLETED Source: [place] 4:01 PM [facility] REPOSITORY HNO ID: [id number] Author: Jo Joseph Service: (none) Author Type: Physician Type: Progress Notes Filed: 11/26/2017 4:05 PM Note Text: NST SUMMARY PROVIDER ASSESSMENT AND INTERPRETATION Roxann Lombardo is a 27 year old female, , who is at 35w3d with an RETA of 12/28/2017, by Last Menstrual Period dating method. Indications for NST: Other: possible cholestasis Baseline: 135 Variability: Moderate Accelerations: Present 15 X 15 Decelerations: None Contractions: TOCO: Irregular Interpretation: Reactive SIGNATURE: Jo Joseph MD CBC Collected: 11/26/2017 Status: F Source: [place] 1:01 [facility] REPOSITORY TYPE CODE TESTS RESULT OUT OF REFERENCE UNITS RANGE LAB WBC 3.70-11.00 k/uL WBC 10.39 LAB RBC 3.90-5.20 m/uL RBC 4.53 LAB HGB 11.5-15.5 g/dL Hemoglobin 13.9 LAB HCT 36.0-46.0 % Hematocrit 41.8 LAB MCV 80.0-100.0 fL MCV 92.3 LAB MCH 26.0-34.0 pG MCH 30.7 LAB MCHC 30.5-36.0 g/dL MCHC 33.3 LAB RDWCV 11.5-15.0 % RDW-CV 13.8 LAB PLTCT 150-400 k/uL Platelet Count 183 LAB MPV 9.0-12.7 fL MPV 11.7 LAB ABSNUC <0.01 k/uL Absolute nRBC <0.01 Performed By: #### CBC, HFP, FT4, TSH #### [facility] [address] [place], [place] [address] HEPATIC FUNCTN PANEL Collected: 11/26/2017 Status: F Source: [place] 1:01 [facility] REPOSITORY TYPE CODE TESTS RESULT OUT OF REFERENCE UNITS RANGE LAB ALB 3.9-4.9 g/dL Low Albumin 3.2 LAB TBIL 0.2-1.3 mg/dL Bilirubin, Total 0.3 LAB CBIL <0.2 mg/dL Bilirubin,Conjuga <0.2 willard LAB ALKP 32-117 U/L Alkaline Phosphatase 115 LAB AST 13-35 U/L AST High 40 LAB ALT 7-38 U/L ALT High 70 LAB TP 6.3-8.0 g/dL Protein, Total 6.4 Performed By: #### CBC, HFP, FT4, TSH #### [facility] [address] [place], [place] [address] FREE T4 Collected: 11/26/2017 Status: F Source: [place] [address]:01 PM [facility] REPOSITORY TYPE CODE TESTS RESULT OUT OF RANGE REFERENCE UNITS LAB FT4 0.9-1.7 ng/dL Free T4 1.0 Performed By: #### CBC, HFP, FT4, TSH #### [facility] [address] [place], [place] [address] TSH Collected: 11/26/2017 Status: F Source: [place] 1:01 PM [facility] REPOSITORY TYPE CODE TESTS RESULT OUT OF RANGE REFERENCE UNITS LAB TSH 0.400-5.500 uU/mL High TSH 8.920 Result Comment: If the patient is , TSH reference range varies by gestational period: First Trimester 0.100-2.500 uU/mL Second Trimester 0.200-3.000 uU/mL Third Trimester 0.300-3.000 uU/mL References: 1. Collins L, Néstor M, Chidi EK, et al. Management of Thyroid Dysfunction during and : An Endocrine Society Clinical Practice Guideline. J Clin Endocrinol Metab, 2012:97:0116-7616. 2. Cameron TONY. Overview of thyroid disease in . UpToDate. 2016. Accessed on February 01, 2016. Performed By: #### CBC, HFP, FT4, TSH #### [facility] [address] [place], [place] [address] GROUP B STREP PCR Collected: 11/26/2017 Status: F Source: [place] 12:37 PM [facility] REPOSITORY TYPE CODE TESTS RESULT OUT OF REFERENCE UNITS RANGE LAB GBPCRT Negative for GROUP Group B B STREP PCR Streptococcus by PCR. Performed By: #### GBPCR #### [facility] [address] [place], [place] [address] PROGRESS Observed: 11/13/2017 Status: COMPLETED Source: [place] 2:34 PM [facility] REPOSITORY HNO ID: [id number] Author: Gerald Dexter Service: (none) Author Type: Physician Type: Progress Notes Filed: 11/13/2017 2:35 PM Note Text: A garza intrauterine The size is AGA Estimated Date of Delivery: 12/28/17 EGA = 33w4d The anatomy appears normal in the areas visualized. The amniotic fluid volume is normal. There is no evidence of effusions and/ or hydrops. The placenta is fundal. RECOMMENDATIONS: - Self-assessment of kick counts - Follow up ultrasound as clinically indicated PROGRESS Observed: 11/13/2017 Status: COMPLETED Source: [place] 1:49 PM [facility] REPOSITORY HNO ID: [id number] Author: Taina Kruger Ma Service: (none) Author Type: (none) Type: Progress Notes Filed: 11/13/2017 2:22 PM Note Text: Patient identified by name and date of . Roxann iGbbser presents today for a vaccination of Tdap. Patient denies an allergy to latex: yes Patient denies a severe (life-threatening) allergy to a previous dose of Tdap, DTP, DTaP, DT or Td vaccine. Yes Patient denies history of epilepsy or neurological problems: Yes Patient is afebrile and denies being moderately or severely ill: Yes Patient denies history of Guillain-[place] Syndrome (a severe paralytic illness): Yes Tdap Adacel injection was given without incident. See immunizations for details of immunizations administered today. VIS sheet provided: Yes Provider Viridiana Noonan MD was present in office at time of injection. Observed: 10/20/2017 Status: F Source: [place] URINE CULTURE 5:24 PM [facility] REPOSITORY Sp. Request/Comment: - Specimen received in preservative Culture Result - <10,000 CFU/ml Normal urogenital shanice Performed By: #### URCUL #### [facility] [address] [place] [id number] [facility] Observed: 10/07/2017 Status: COMPLETED Source: [place] 12:00 AM [facility] REPOSITORY Telephone (WOOB) ROXANN LOMBARDO ([id number]) 1990 F Date Time Provider Department 10/07/17 VIRIDIANA FELIX During your visit today, we recorded the following information about you: Estela Delgado CAMMIE 10/07/2017 12:41 PM Signed Ob patient is 28w2d ANDamp; refused to drink the glucose drink d/t multiple good allergies. Patient was told that she could check her blood sugars instead. Patient is asking if she has to do this for the remainder of her or for a few weeks? Patient will also be calling back after she speaks to her insurance company because her Glucometer Rx was denied. Patient is going to call to see if specific brand of glucometer is covered. Felisha Khan CNM 10/07/2017 12:47 PM Signed At this time it is recommended for patient to check every day and to check fasting and then 2 hour post-prandial values (2 hours after she eats with each meal). Pending her results, then we will determine if she only needs to monitor for a few weeks or for the duration of the . GLENDY Noel RN 10/07/2017 1:13 PM Signed Patient aware. She spoke with insurance and will only cover One Touch Verio Meter, script called to [facility] and they will keep us posted if any issues with meter. Rasta Nixon RN Allergies As of Date: 10/07/2017 Noted Allergy Reaction MELON 05/11/2017 10 - Anaphylaxis 12 - Shortness of Breath Comments: cantaloupe, watermelon MULBERRY 05/11/2017 14 - Other: See Comments Comments: tested positive NUT - UNSPECIFIED 05/11/2017 9 - Itching 12 - Shortness of Breath Comments: peanuts, walnuts, hazelnuts , soy SEASONAL ALLERGIES 05/11/2017 14 - Other: See Comments SOY 05/11/2017 7 - Swelling 12 - Shortness of Breath Date Reviewed: 10/02/2017 Reviewed by: Taina Kruger Ma - Fully Assessed Reason for Visit: Care [86] Cmt: question Reason For Visit History Recorded Prescriptions as of 10/07/2017 Sig: BLOOD-GLUCOSE METER 1 Each as directed. BLOOD SUGAR DIAGNOSTIC STRIPS 1 Strip four times daily. Use* LANCETS 1 Each four times daily. Use * URINE GLUCOSE-KETONES TEST ST* 1 Strip four times daily. ASPIRIN 81 MG TABLET,DELAYED * Take 81 mg by mouth twice criss* VITAMIN,CALCIUM,MINE* Take 1 tablet by mouth. LEVOTHYROXINE 75 MCG TABLET Take 100 mcg by mouth daily b* HYDROXYCHLOROQUINE 200 MG TAB* Take 300 mg by mouth once criss* ZYRTEC ORAL Take by mouth. Problem List As Of Date 10/07/2017 Noted Resolved History of liver disease [Z87.19] INVALID FOR* More... History of systemic lupus erythematosus (SLE) [*INVALID FOR* More... History of hypothyroidism [Z86.39] INVALID FOR* More... Supervision of other high risk pregnancies, fir*INVALID FOR* Encounter Status:Closed by FELISHA KHAN CNM on 10/07/17 CBC Collected: 10/06/2017 Status: F Source: [place] 4:25 PM [facility] REPOSITORY TYPE CODE TESTS RESULT OUT OF RANGE REFERENCE UNITS LAB CBC(LOINC) CBC Result Comment: CBC-COMPLETE BLOOD COUNT LAB WBC(LOINC) 4.5 - 10.8 x 10EE3/UL WBC 8.7 LAB RBC(LOINC) 4.10 - x 10EE6/UL 5.30 RBC Low 3.89 LAB HEMOGLOBIN(LOINC) 12.0 - g/dl 16.0 HEMOGLOBIN 12.2 LAB HEMATOCRIT(LOINC) 34.0 - % 46.0 HEMATOCRIT 34.4 LAB MCV(LOINC) 80 - 99 fl MCV 88 LAB MCH(LOINC) 27 - 33 pg MCH 31 LAB MCHC(LOINC) 32 - 36 X10 3 MCHC 35 LAB RDW/CV(LOINC) 12.0 - % 15.6 RDW/CV 13.5 LAB PLATELET(LOINC) 150 - 450 x10EE3/UL PLATELET 166 LAB MPV(LOINC) 6.6 - 10.5 fl MPV 8.9 Result Comment: AUTOMATED DIFFERENTIAL LAB NEUT %(LOINC) 46.0 - 76.0 % NEUT % 73.4 LAB LYMPH %(LOINC) 20.0 - 45.0 % LYMPH % Low 17.2 LAB MONOS %(LOINC) 0.0 - 10.0 % MONOS % 8.2 LAB EO %(LOINC) 0.0 - 7.0 % EO % 0.9 LAB BASO %(LOINC) 0.0 - 2.0 % BASO % 0.3 LAB Lymph #(LOINC) 0.80 - 2.80 x10EE3/U L Lymph # 1.50 LAB Neut #(LOINC) 1.50 - 7.10 x10EE3/U L Neut # 6.40 LAB [place] #(LOINC) 0.20 - 1.00 x10EE3/U L [place] # 0.70 LAB EO #(LOINC) 0.00 - 0.50 x10EE3/U L EO # 0.10 LAB Baso #(LOINC) 0.00 - 0.10 x10EE3/U L Baso # 0.00 LAB MANUAL DIFF(LOINC) MANUAL DIFF N/A LAB MORPHOLOGY(LOINC ) MORPHOLOGY N/A Result Comment: {CD] Performed By: #### [id number] #### [place] [id number] URINE CREATININE AND Collected: 10/06/2017 Status: F Source: [facility] PROTEIN RATIO 4:25 PM [facility] REPOSITORY TYPE CODE TESTS RESULT OUT OF REFERENCE UNITS RANGE LAB CREATININE mg/dl UR(LOINC) CREATININE UR 57.7 LAB URINE TOTAL 0.00 - 10.00 mg/dL PROTEIN(LOINC) URINE TOTAL PROTEIN 10.00 LAB PC RATIO(INC) 0 - 10 mg/dL PC RATIO 0 Performed By: #### [id number] #### [place] [address] URINALYSIS Collected: 10/06/2017 Status: F Source: [facility] 4:25 PM [facility] REPOSITORY TYPE CODE TESTS RESULT OUT OF REFERENCE UNITS RANGE LAB URINALYSIS (LOINC) URINALYSIS Result Comment: URINALYSIS LAB Specimen Type(LOINC) Specimen Type Void LAB Color(LOINC) NORMAL: YELLOW Color p.yel LAB Clarity(LOINC) NORMAL: CLEAR Clarity sl.cloudy LAB ph(LOINC) NORMAL: 5.0-8.0 ph 7 LAB Protein(LOINC) NORMAL: NEGATIVE Protein NEG LAB Glucose(LOINC) NORMAL: NORMAL Glucose Abnormal 50 LAB Ketone(LOINC) NORMAL: NEGATIVE Ketone NEG LAB Bilirubin(LOINC) NORMAL: NEGATIVE Bilirubin NEG LAB Blood(LOINC) NORMAL: NEGATIVE Blood NEG LAB Urobilinog(LOINC) NORMAL: NORMAL Urobilinog NORM LAB Sp Cub Run(LOINC) NORMAL: Low 1.010-1.030 Sp Cub Run 1.005 LAB Nitrite(LOINC) NORMAL: NEGATIVE Nitrite NEG LAB Leukocytes(LOINC) NORMAL: NEGATIVE Leukocytes Abnormal 500 LAB Microscopic(LOINC ) Microscopic SEE BELOW Result Comment: MICROSCOPIC LAB Wbc(LOINC) 0-5/hpf Wbc >50 LAB Rbc(LOINC) 0-3/hpf Rbc NONE LAB Casts(LOINC) Casts NONE LAB Crystals(LOINC) Crystals NONE LAB Amorphous(LOINC) NONE Amorphous LAB Bacteria(LOINC) Bacteria 3+ LAB Epi Cells(LOINC) Epi Cells MODERATE LAB Mucous(LOINC) Mucous NONE LAB Yeast(LOINC) Yeast NONE Performed By: #### [id number] #### [facility],[address] [place] [address] CMP WITH EGFR Collected: 10/06/2017 Status: F Source: [facility] 4:25 PM [facility] REPOSITORY TYPE CODE TESTS RESULT OUT OF RANGE REFERENCE UNITS LAB CMP with eGFR(LOINC) CMP with eGFR Result Comment: COMPREHENSIVE METABOLIC PANEL LAB SODIUM(LOINC) 136 - 145 mmol/l SODIUM 136 LAB POTASSIUM(LOINC) 3.5 - 5.1 mmol/L POTASSIUM 3.7 LAB CHLORIDE(LOINC) 98 - 107 mmol/L CHLORIDE 105 LAB CO2(LOINC) 21.0 - mmol/L 31.0 CO2 25.1 LAB GLUCOSE(LOINC) 74 - 106 mg/dl GLUCOSE 85 LAB BUN(LOINC) 6 - 20 mg/dl BUN 14 LAB CREATININE(LOINC) 0.6 - 1.2 mg/dl CREATININE 1.0 LAB AST/SGOT(LOINC) 13 - 39 U/L AST/SGOT 21 LAB ALK PHOS(LOINC) 38 - 126 U/L ALK PHOS 56 LAB CALCIUM(LOINC) 8.6 - mg/dl 10.2 CALCIUM Low 8.4 LAB TOTAL PROTEIN(LOINC) 6.4 - 8.3 g/dl TOTAL Low PROTEIN 5.8 LAB ALBUMIN(LOINC) 3.4 - 4.8 g/dL ALBUMIN Low 3.2 LAB GLOBULIN(LOINC) 1.5 - 3.8 G/DL GLOBULIN 2.6 LAB A/G RATIO(LOINC) 0.9 - 1.6 A/G RATIO 1.2 LAB TOTAL BILI(LOINC) 0.0 - 1.5 mg/dl TOTAL BILI 0.3 LAB B/C RATIO(LOINC) 0 - 30 ratio B/C RATIO 14 LAB ALT/SGPT(LOINC) 8 - 35 U/L ALT/SGPT 26 LAB ANION GAP(LOINC) 10 - 20 mmol/L ANION GAP 10 LAB AGE(LOINC) years AGE 26 LAB eGFR(LOINC) 60 - 999 ML/MINUTE eGFR >60 LAB eGFR(AA)(LOINC) 60 - 999 ML/MINUTE eGFR(AA) >60 Result Comment: ACCORDING TO THE NATIONAL KIDNEY DISEASE EDUCATION PROGRAM(NKDE), A NORMAL eGFR IS A VALUE GREATER THAN OR EQUAL TO 60 ML/MIN/1.73 SQ METERS. CHRONIC KIDNEY DISEASE: <60mL/MIN/1.73 SQ METERS KIDNEY FAILURE: <15mL/MIN/1.73 SQ METERS THIS TEST SHOULD ONLY BE USED FOR PATIENTS 18 YEARS OF AGE AND OLDER. Performed By: #### [id number] #### [facility],[address] [place] [address] DNA DOUBLE STRANDED Collected: 10/06/2017 Status: F Source: [facility] AB [QUEST] 4:25 PM [facility] REPOSITORY TYPE CODE TESTS RESULT OUT OF REFERENCE UNITS RANGE LAB DNA DOUBLE STRANDED AB [QUEST](LOINC) DNA DOUBLE STRANDED AB [QUEST] Result Comment: _DNA DOUBLE STRANDED AB_ DNA (DS) ANTIBODY Reported: 10/09/2017 10:51 Status=F TEST RESULT FLAG RANGE UNITS DNA (DS) ANTIBODY 1 <=4 IU/mL 10/09/17.1102.rflESTEBAN.AMRR .5130-0 Value Interpretation <or=4 IU/mL: Negative 5 - 9 IU/mL: Indeterminate >or=10 IU/mL: Positive Test Performed by [facility], [facility], [address] [place], [place] Javier Khan M.D., Ph.D., Director of Laboratories , CLIA [id number] Performed By: #### [id number] #### [facility],[address] [place] [address] C3, COMPLEMENT [QUEST] Collected: 10/06/2017 Status: F Source: [facility] 4:25 PM [facility] REPOSITORY TYPE CODE TESTS RESULT OUT OF REFERENCE UNITS RANGE LAB C3, COMPLEMENT [QUEST](LOINC) C3, COMPLEMENT [QUEST] Result Comment: _C3, COMPLEMENT_ COMPLEMENT COMPONENT C3C Reported: 10/09/2017 15:39 Status=F TEST RESULT FLAG RANGE UNITS COMPLEMENT COMPONENT C3C 137 83-193 mg/dL 10/09/17.1550.Radha.AMRR .4485-9 Test Performed by [facility], [facility], [address] [place], [place] Javier Khan M.D., Ph.D., Director of Laboratories , CLIA [id number] Performed By: #### [id number] #### [facility],[address] [place], [place] [id number] C4, COMPLEMENT [QUEST] Collected: 10/06/2017 Status: F Source: [facility] 4:25 PM [facility] REPOSITORY TYPE CODE TESTS RESULT OUT OF REFERENCE UNITS RANGE LAB C4, COMPLEMENT [QUEST](LOINC) C4, COMPLEMENT [QUEST] Result Comment: _C4, COMPLEMENT_ COMPLEMENT COMPONENT C4C Reported: 10/09/2017 15:39 Status=F TEST RESULT FLAG RANGE UNITS COMPLEMENT COMPONENT C4C 39 15-57 mg/dL 10/09/17.1550.rfl.COMPLETE.AMRR .4498-2 Test Performed by [facility], [facility], [address] [place] [id number] Javier Khan M.D., Ph.D., Director of Laboratories , [place] [id number] Performed By: #### [id number] #### [facility],[address] [place], [place] [address] T3U (T3 UPTAKE) Collected: 09/17/2017 Status: F Source: [facility] 4:10 PM [facility] REPOSITORY TYPE CODE TESTS RESULT OUT OF RANGE REFERENCE UNITS LAB T3u(LOINC) 24 - 34 % T3u 29 Performed By: #### [id number] #### [facility],[address] [place], [place] [address] T4-FREE (FREE Collected: 09/17/2017 Status: F Source: [facility]LL[facility] BORDENND THYROXINE) 4:10 PM [facility] REPOSITORY TYPE CODE TESTS RESULT OUT OF RANGE REFERENCE UNITS LAB T4 0.61 - 1.12 ng/dl FREE(LOINC) T4 FREE 0.69 Result Comment: *SPECIMENS FROM PATIENTS WHO ARE UNDERGOING BIOTIN THERAPY AND/OR INGESTING BIOTIN SUPPLEMENTS MAY HAVE FALSE HIGH RESULTS. Performed By: #### [id number] #### [facility],[address] [place] [address] TSH Collected: 09/15/2017 Status: F Source: [facility] 4:25 PM [facility] REPOSITORY TYPE CODE TESTS RESULT OUT OF RANGE REFERENCE UNITS LAB TSH(LOINC) 0.34 - 5.60 uIU/ml High TSH 10.80 Performed By: #### [id number] #### [facility],[address] [place] [address] HOSP Observed: 09/04/2017 Status: COMPLETED Source: [place] 2:00 PM [facility] REPOSITORY Routine Office Visit (WOOB) ROXANN LOMBARDO ([id number]) 1990 F Date Time Provider Department 09/04/17 2:00 PM SCARLETT VELARDE WOOB During your visit today, we recorded the following information about you: Blood pressure Weight 112/60 57.6 kg Janelle [facility] 09/04/2017 1:56 PM Signed SEQUENTIAL SCREENINGS [facility] offers sequential screenings for women who are interested in screenings for chromosomal abnormalities and certain defects during a . The sequential screen combines ultrasound and blood tests to determine the risk of chromosomal abnormalities, including Down's Syndrome (Trisomy 21) and Trisomy 18, as well as open neural tube defects including spina bifida. Ultrasound examination is performed between 11 weeks and 13 weeks gestational age. Blood tests are drawn after the ultrasound and again later in the between 15 and 21 weeks gestational age. Please let your physician know if you are interested in this testing. It will require an appointment with our hvac controls technician. This is not an ultrasound performed by a physician in our office during a routine visit. SIGNS AND SYMPTOMS OF LABOR 1. Contractions every 10 minutes or more often 2. Clear, pink, or brownish fluid (water) leaking from vagina 3. Feeling that baby is pushing down, pressure 4. Low, dull backache 5. Cramps that feel like a period 6. Cramps with or without diarrhea If you notice any of the above symptoms, contact our office at [phone] and ask to speak with a nurse. After hours, you can call doctors registry at [phone] OR call [facility] at [phone] and ask to have the doctor windows phone developer paged. If you consider this an emergency, dial 9-5-0 or go to your nearest emergency department. NEED HELP? Are you dealing with a violent or abusive relationship? Are you a victim of rape or sexual assult? Call [facility] ([place]) 24 hour Crisis Hotline: 658.771.6230 or 071-169-7257. MANUAL Your Guide to a Healthy manual is now on-line. Visit [email or web address] to download your free copy Referring Provider: SELF [200] Allergies As of Date: 09/04/2017 Noted Allergy Reaction MELON 05/11/2017 10 - Anaphylaxis 12 - Shortness of Breath Comments: cantaloupe, watermelon MULBERRY 05/11/2017 14 - Other: See Comments Comments: tested positive NUT - UNSPECIFIED 05/11/2017 9 - Itching 12 - Shortness of Breath Comments: peanuts, walnuts, hazelnuts , soy SEASONAL ALLERGIES 05/11/2017 14 - Other: See Comments SOY 05/11/2017 7 - Swelling 12 - Shortness of Breath Date Reviewed: 09/04/2017 Reviewed by: Scarlett Velarde - Fully Assessed Reason for Visit: Care [86] Primary Visit Diagnosis:23 weeks gestation of [Z3A.23] Other Visit Diagnosis:High-risk , second trimester [O09.92] Order(s):URINE OB DIP B/O [0292904] Order #: [id number] Prescriptions as of 09/04/2017 Sig: ASPIRIN 81 MG TABLET,DELAYED * Take 81 mg by mouth twice criss* VITAMIN,CALCIUM,MINE* Take 1 tablet by mouth. LEVOTHYROXINE 75 MCG TABLET Take 100 mcg by mouth daily b* HYDROXYCHLOROQUINE 200 MG TAB* Take 300 mg by mouth once criss* ZYRTEC ORAL Take by mouth. Problem List As Of Date 09/04/2017 Noted Resolved History of liver disease [Z87.19] INVALID FOR* More... History of systemic lupus erythematosus (SLE) [*INVALID FOR* More... History of hypothyroidism [Z86.39] INVALID FOR* More... Supervision of other high risk pregnancies, fir*INVALID FOR* Other instructions from your clinician: SEQUENTIAL SCREENINGS [facility] offers sequential screenings for women who are interested in screenings for chromosomal abnormalities and certain defects during a . The sequential screen combines ultrasound and blood tests to determine the risk of chromosomal abnormalities, including Down's Syndrome (Trisomy 21) and Trisomy 18, as well as open neural tube defects including spina bifida. Ultrasound examination is performed between 11 weeks and 13 weeks gestational age. Blood tests are drawn after the ultrasound and again later in the between 15 and 21 weeks gestational age. Please let your physician know if you are interested in this testing. It will require an appointment with our hvac controls technician. This is not an ultrasound performed by a physician in our office during a routine visit. SIGNS AND SYMPTOMS OF LABOR 1. Contractions every 10 minutes or more often 2. Clear, pink, or brownish fluid (water) leaking from vagina 3. Feeling that baby is pushing down, pressure 4. Low, dull backache 5. Cramps that feel like a period 6. Cramps with or without diarrhea If you notice any of the above symptoms, contact our office at [phone] and ask to speak with a nurse. After hours, you can call doctors registry at [phone] OR call [facility] at [phone] and ask to have the doctor windows phone developer paged. If you consider this an emergency, dial - or go to your nearest emergency department. NEED HELP? Are you dealing with a violent or abusive relationship? Are you a victim of rape or sexual assult? Call [facility] ([place]) 24 hour Crisis Hotline: 497.884.9695 or 496-067-8784. MANUAL Your Guide to a Healthy manual is now on-line. Visit [email or web address] to download your free copy Disposition: Return in about 4 weeks (around 10/02/2017) for routine OB check. Follow-up and Disposition History Recorded Encounter Status:Closed by SCARLETT VELARDE MD on 09/04/17 PROGRESS Observed: 08/07/2017 Status: COMPLETED Source: [place] 3:54 PM [facility] REPOSITORY HNO ID: [id number] Author: Jesu Oliveros Service: (none) Author Type: Physician Type: Progress Notes Filed: 08/07/2017 3:55 PM Note Text: Please see ultrasound report for details of this visit. Jesu Oliveros M.D. HOSP Observed: 08/07/2017 Status: COMPLETED Source: [place] 2:30 PM [facility] REPOSITORY Routine Office Visit (WOOB) ROXANN LOMBARDO ([id number]) 1990 F Date Time Provider Department 08/07/17 2:30 PM JESU OLIVEROS WOOB During your visit today, we recorded the following information about you: Jesu Oliveros MD 08/07/2017 3:55 PM Signed Please see ultrasound report for details of this visit. Jesu Oliveros M.D. Referring Provider: SCARLETT VELARDE [[id number]] Allergies As of Date: 08/07/2017 Noted Allergy Reaction MELON 05/11/2017 10 - Anaphylaxis 12 - Shortness of Breath Comments: cantaloupe, watermelon MULBERRY 05/11/2017 14 - Other: See Comments Comments: tested positive NUT - UNSPECIFIED 05/11/2017 9 - Itching 12 - Shortness of Breath Comments: peanuts, walnuts, hazelnuts , soy SEASONAL ALLERGIES 05/11/2017 14 - Other: See Comments SOY 05/11/2017 7 - Swelling 12 - Shortness of Breath Date Reviewed: 08/07/2017 Reviewed by: Shira Woody Ma - Fully Assessed Primary Visit Diagnosis:19 weeks gestation of [Z3A.19] Other Visit Diagnosis: screening for malformation using ultrasonics [Z36.3] Prescriptions as of 08/07/2017 Sig: ASPIRIN 81 MG TABLET,DELAYED * Take 81 mg by mouth twice criss* VITAMIN,CALCIUM,MINE* Take 1 tablet by mouth. LEVOTHYROXINE 75 MCG TABLET Take 100 mcg by mouth daily b* HYDROXYCHLOROQUINE 200 MG TAB* Take 300 mg by mouth once criss* ZYRTEC ORAL Take by mouth. Problem List As Of Date 08/07/2017 Noted Resolved History of liver disease [Z87.19] INVALID FOR* More... History of systemic lupus erythematosus (SLE) [*INVALID FOR* More... History of hypothyroidism [Z86.39] INVALID FOR* More... Supervision of other high risk pregnancies, fir*INVALID FOR* Encounter Status:Closed by JESU OLIVEROS MD on 08/07/17 HOSP Observed: 08/07/2017 Status: COMPLETED Source: [place] 2:20 PM [facility] REPOSITORY Routine Office Visit (WOOB) ROXANN LOMBARDO ([id number]) 1990 F Date Time Provider Department 08/07/17 2:20 PM JO JOSEPH WOOB During your visit today, we recorded the following information about you: Blood pressure Weight 96/58 54.4 kg Shira Woody Ma 08/07/2017 2:54 PM Signed SEQUENTIAL SCREENINGS [facility] offers sequential screenings for women who are interested in screenings for chromosomal abnormalities and certain defects during a . The sequential screen combines ultrasound and blood tests to determine the risk of chromosomal abnormalities, including Down's Syndrome (Trisomy 21) and Trisomy 18, as well as open neural tube defects including spina bifida. Ultrasound examination is performed between 11 weeks and 13 weeks gestational age. Blood tests are drawn after the ultrasound and again later in the between 15 and 21 weeks gestational age. Please let your physician know if you are interested in this testing. It will require an appointment with our hvac controls technician. This is not an ultrasound performed by a physician in our office during a routine visit. SIGNS AND SYMPTOMS OF LABOR 1. Contractions every 10 minutes or more often 2. Clear, pink, or brownish fluid (water) leaking from vagina 3. Feeling that baby is pushing down, pressure 4. Low, dull backache 5. Cramps that feel like a period 6. Cramps with or without diarrhea If you notice any of the above symptoms, contact our office at [phone] and ask to speak with a nurse. After hours, you can call doctors registry at [phone] OR call [facility] at [phone] and ask to have the doctor windows phone developer paged. If you consider this an emergency, dial 5-1-5 or go to your nearest emergency department. NEED HELP? Are you dealing with a violent or abusive relationship? Are you a victim of rape or sexual assult? Call [facility] ([place]) 24 hour Crisis Hotline: 407.804.2317 or 395-832-6197. MANUAL Your Guide to a Healthy manual is now on-line. Visit [email or web address] to download your free copy Referring Provider: SELF [200] Allergies As of Date: 08/07/2017 Noted Allergy Reaction MELON 05/11/2017 10 - Anaphylaxis 12 - Shortness of Breath Comments: cantalopetrona, watermelon MULBERRY 05/11/2017 14 - Other: See Comments Comments: tested positive NUT - UNSPECIFIED 05/11/2017 9 - Itching 12 - Shortness of Breath Comments: peanuts, walnuts, hazelnuts , soy SEASONAL ALLERGIES 05/11/2017 14 - Other: See Comments SOY 05/11/2017 7 - Swelling 12 - Shortness of Breath Date Reviewed: 08/07/2017 Reviewed by: Shira Woody Ma - Fully Assessed Reason for Visit: Care [86] Primary Visit Diagnosis:Encounter for supervision of other normal in second trimester [Z34.82] Other Visit Diagnosis:19 weeks gestation of [Z3A.19] Order(s):URINE OB DIP B/O [[id number]] Order #: [id number] Prescriptions as of 08/07/2017 Sig: ASPIRIN 81 MG TABLET,DELAYED * Take 81 mg by mouth twice criss* VITAMIN,CALCIUM,MINE* Take 1 tablet by mouth. LEVOTHYROXINE 75 MCG TABLET Take 100 mcg by mouth daily b* HYDROXYCHLOROQUINE 200 MG TAB* Take 300 mg by mouth once criss* ZYRTEC ORAL Take by mouth. Problem List As Of Date 08/07/2017 Noted Resolved History of liver disease [Z87.19] INVALID FOR* More... History of systemic lupus erythematosus (SLE) [*INVALID FOR* More... History of hypothyroidism [Z86.39] INVALID FOR* More... Supervision of other high risk pregnancies, fir*INVALID FOR* Other instructions from your clinician: SEQUENTIAL SCREENINGS [facility] offers sequential screenings for women who are interested in screenings for chromosomal abnormalities and certain defects during a . The sequential screen combines ultrasound and blood tests to determine the risk of chromosomal abnormalities, including Down's Syndrome (Trisomy 21) and Trisomy 18, as well as open neural tube defects including spina bifida. Ultrasound examination is performed between 11 weeks and 13 weeks gestational age. Blood tests are drawn after the ultrasound and again later in the between 15 and 21 weeks gestational age. Please let your physician know if you are interested in this testing. It will require an appointment with our hvac controls technician. This is not an ultrasound performed by a physician in our office during a routine visit. SIGNS AND SYMPTOMS OF LABOR 1. Contractions every 10 minutes or more often 2. Clear, pink, or brownish fluid (water) leaking from vagina 3. Feeling that baby is pushing down, pressure 4. Low, dull backache 5. Cramps that feel like a period 6. Cramps with or without diarrhea If you notice any of the above symptoms, contact our office at [phone] and ask to speak with a nurse. After hours, you can call doctors registry at [phone] OR call [facility] at [phone] and ask to have the doctor windows phone developer paged. If you consider this an emergency, dial 9- or go to your nearest emergency department. NEED HELP? Are you dealing with a violent or abusive relationship? Are you a victim of rape or sexual assult? Call [facility] ([place]) 24 hour Crisis Hotline: 921.137.1334 or 984-097-5459. MANUAL Your Guide to a Healthy manual is now on-line. Visit [email or web address] to download your free copy Encounter Status:Closed by JO JOSEPH MD on 08/07/17 ALLERGIES ALLERGIES DATE TYPE / CODE NAME / CODE REACTION SEVERITY SOURCE Drug melon/[id number] Shortness of Unknown [place] 8 Allergy/350666031( (RXNORM) breath [facility] Repository Miscellaneous mulberry Shortness of Unknown [place] 8 Allergy/047848959( breath [facility]) Hospital Repository Drug soy/[id number](R Anaphylaxis Unknown [place] 8 Allergy/724703868( XNORM) Community SN[facility]) Hospital Repository Miscellaneous peanuts Anaphylaxis Unknown [place] 8 Allergy/709725485( Community SNOMED [facility]) Hospital Repository DRUG MELON ANAPHYLAXIS [place] [address] INGREDI/196286355( Clinic Main SNOMED CT) [place] Repository Food/916377116(SNO MULBERRY OTHER: SEE C [place] [address]) Clinic Main [place] Repository DRUG NUT - ITCHING [place] [address] INGREDI/556968236( UNSPECIFIED Clinic Main SNOMED CT) [place] Repository Environ/505670184( SEASONAL OTHER: SEE C [place] [address]) ALLERGIES Clinic Main [place] Repository DRUG SOY SWELLING [place] [address] INGREDI/984460773( Clinic Main SNOMED CT) [place] Repository ENCOUNTERS ENCOUNTERS ADMIT/DISCHARGE ACCOUNT ADMITTING ENCOUNTER LOCATION SOURCE NUMBER CLASS 07/21/2018/07/21/20 [id number] [facility] [address] [place] [address] Repository 07/13/2018 [id number] [facility] ing:LAB.FUTUR Repository E 04/15/2018 [id number] [facility] ing:BFHLAB Repository 04/06/2018 [id number] [facility] Hospital ing:LAB.FUTUR Repository E 01/29/2018/01/30/20 [id number] EBEN, Ambulatory [facility] [address] [place] [address] Repository 01/29/2018/02/03/20 [id number] Ambulatory [address] [place] Repository 01/21/2018/01/22/20 [id number] SUNI, Ambulatory [facility] [address] [place] [address] Repository 12/15/2017 [id number] Ambulatory [facility] ing:BFHLAB Repository 11/30/2017 [id number] [facility] ing:WP Repository 11/29/2017/12/02/19 [id number] [facility] [address] ing:WPRoom: Repository [id number]: 1 11/28/2017/11/29/19 [id number] Ambulatory [address] ing:WPOUTRoom Repository : [id number] 11/27/2017/12/03/19 [id number] Ambulatory [address] [place] Repository 11/27/2017/12/02/19 [id number] Ambulatory [address] [place] Repository 11/26/2017/11/27/19 [id number] Ambulatory [address] [place] Repository 11/26/2017/12/01/19 [id number] Ambulatory [address] Main [place] Repository 11/19/2017/11/21/19 [id number] Ambulatory [address] Main [place] Repository 11/13/2017/11/18/19 [id number] Ambulatory [address] Main [place] Repository 11/13/2017/11/18/19 [id number] Ambulatory [address] Main [place] Repository 10/30/2017/10/31/19 [id number] Ambulatory [address] Main [place] Repository 10/19/2017/11/06/19 [id number] Ambulatory [address] Main [place] Repository 10/15/2017/10/16/19 [id number] Ambulatory [address] Main [place] Repository 10/06/2017/10/06/19 [id number] SUNI, Ambulatory [facility] [address] [facility] Repository 10/02/2017/10/02/19 [id number] Ambulatory [address] Repository 09/17/2017/09/17/19 [id number] JOLLY, Ambulatory Mello Pomerene 18 [facility] Repository 09/15/2017/09/15/19 [id number] JOLLY, Ambulatory Mello [place] 18 [facility] Repository 09/04/2017 [id number] Ambulatory [facility] Repository 08/07/2017/08/11/20 [id number] Ambulatory [address] Repository 08/07/2017/08/11/[id number] Repository PAYERS PAYERS ENCOUNTER GUARANTOR PAYER SUBSCRIBER SOURCE 07/21/2018 ROXANN BENITEZB: Primary DOMINGO [place] [id number] Insurance:ANTHEM BLUE RABERDOB: [address] COMMERCIAL [id number] [facility] [address] Repository [address]Luq: (252) Number: [address] [place] [address] [phone] () [id number] Sd [id number] Date:Plan Name: 07/13/2018 ROXANN Chow Primary DOMINGO [id number] TR Insurance:ANTHEMPolicy RABERDOB: [address], Number: [id number] [address]Abh: [id number] Repository Date:2614-34-19KQ BOX (HP) [address]7[place]XAVI, [place] [address]BO: 07/13/2018 Secondary NOT GIVENUNK [place] Insurance:SELF PAY [facility] Number: Effective Repository Date:2018-04-07 04/15/2018 ROXANN Chow Primary DOMINGO Quan [id number] TR Insurance:ANTHEMPolicy RABERDOB: [address], Number: [id number] [facility] [address]Aie: [id number] Repository Date:8852-83-97WH BOX (HP) [address]1266RSOSGCN, [place] [address]AN: 04/15/2018 Secondary NOT GIVENUNK [place] Insurance:SELF PAY [facility] Number: Effective Repository Date:2018-04-15 04/06/2018 ROXANN Chow Primary DOMINGO Quan [id number] TR Insurance:ANTHEMPolicy RABERDOB: [address], Number: [id number] [place] [address]Vvh: [id number] Repository Date:0698-02-44ZG BOX () [id number] [place] [address]XH: 04/06/2018 Secondary NOT GIVENUNK [place] Insurance:SELF PAY [facility] Number: Effective Repository Date:2018-03-25 01/29/2018 ROXANN RABERDOB: Primary DOMINGO [place] Insurance:ANTHEM BLUE RABERDOB: [facility] [id number] [place] [address] Repository [place] [address]Nab: Number: [address] [place] [address], [id number] [place] [id number] () Date:Plan Name: 01/21/2018 ROXANN RABERDOB: Primary DOMINGO [place] Insurance:ANTHTRU HOUSE RABERDOB: [facility] [id number] [place] [address] Repository [place] [address]Gyj: Number: [address] [place] [address], [id number] [place] [id number] () Date:Plan Name:B2 12/15/2017 DOMINGO A Primary DOMINGO [place] [id number] TR Insurance:ANTHEMPolicy RABERDOB: [address], Number: [id number] [place] [address]Bhi: [id number] Repository Date:4147-35-82UW BOX () [id number] [place] [address]KT: 12/15/2017 Secondary NOT GIVENUNK [place] Insurance:SELF PAY [facility] Number: Effective Repository Date:2017-12-15 11/30/2017 DOMINGO A Primary DOMINGO A [place] [id number] TR Insurance:ANTHEMPolicy RABERDOB: [address], Number: [id number] [address]Ald: [id number] Repository Date:1020-92-40DE BOX () [id number], [place] [address]LU: 11/30/2017 Secondary NOT GIVENUNK [place] Insurance:SELF PAY [facility] Number: Effective Repository Date:2017-11-27 11/29/2017 DOMINGO A Primary DOMINGO A [place] [id number] TR Insurance:ANTHEMPolicy RABERDOB: [address], Number: [id number] [address]Rly: [id number] Repository Date:2849-08-04SV BOX () [id number], [place] [address]GV: 11/29/2017 Secondary NOT GIVENUNK [place] Insurance:SELF PAY [facility] Number: Effective Repository Date:2017-11-29 11/28/2017 DOMINGO A Primary DOMINGO A [place] [id number] TR Insurance:ANTHEMPolicy RABERDOB: [address], Number: [id number] [address]Xmj: [id number] Repository Date:8072-25-77PY BOX () 544[address]SLHZJOX, [place] [address]NU: 11/28/2017 Secondary NOT GIVENUNK [place] Insurance:SELF PAY [facility] Number: Effective Repository Date:2017-11-28 10/06/2017 ROXANN RABERDOB: Primary DOMINGO [place] Insurance:ANTHEM BLUE RABERDOB: [facility] CROSS COMMERCIAL [id number] [address] [place]ository [place] [address]Anh: Number: [place], [id number] [place] [id number] () Date:Plan Name:B2 09/17/2017 ROXANN LOMBARDOB: Primary DOMINGO [place] Insurance:Leonidas BENITEZB: [facility] Number: [id number] [address] [id number] Repository [place] [address]Uac: Date:0661-15-95Ydkj[address] Name:[place] [id number] () 09/15/2017 ROXANN BRAN: Primary DOMINGO [place] Insurance:JAMAAL BENITEZB: [facility] CROSS COMMERCIAL [id number] [address] Repository [place] [address]Fry: Number: [address], [id number] [place] [id number] () Date:Plan Name:B2
== END ==
PROVIDERS: Family Provider Family Medicine; PCP Family Medicine; Visit Provider Family Medicine
DX: E03.9 Hypothyroidism, unspecified (principal)
CPT/HCPCS: 36415; 84439; 84443; 84481

== ENCOUNTER 2018-09-22 04:36 | Emergency (ER) | payer BC, SELFPAY ==
[2018-09-22 04:38] VITALS: BP 109/71; PULSE 111; RESP 16; TEMP 36.6; O2SAT 100; BMI 18.8
--- NOTE | 2018-09-22 05:01 | ED.VISSUMM ---
- ER Visit Summary Date of Service: 09/22/18 Chief Complaint: I think I am having anaphylaxis. History of Present Illness: The patient is a 27 F who presents due to concern for possible anaphylaxis. She has multiple food allergies. She woke this morning and felt like something was in her throat. She was concerned she may have swelling. He became increasingly concerned that this may be anaphylaxis. She gave herself an EpiPen twice. She woke with symptoms. She cannot identify any exposures. She notes that there are no pink products in the home she denies any rash. She denies flushing. She denies nausea or vomiting. She denies any recent illness. She denies any pain. Physical Examination: Afebrile initial heart rate 111 but heart rate normal on my evaluation Patient appears extremely anxious with pressured speech Heart regular rate and rhythm Lungs are clear to auscultation there are no rales rhonchi or wheezing there is no stridor Oropharynx is clear uvula is midline airway patent No neck mass or tenderness Skin warm and dry no rash Test Results: Not indicated Emergency Department Course and Treatment: Patient currently has no evidence of anaphylaxis. She has no identified exposure. She did not have nausea vomiting flushing or rash. This may be related to globus hystericus and anxiety/panic attack. Patient observed for 1 hour. She is requesting discharge. She states she does have follow-up with her physician scheduled. On reevaluation she still has no evidence of anaphylaxis no rash no difficulty breathing no stridor airway patent. Treatment Plan: [] Disposition: Discharge Impression: Globus hystericus This note was generated with [employer] dictation software. It may contain incorrect words, spelling, and punctuation that were not noted in review of the chart prior to signing ED Disposition - Plan for ED Patient: Referrals: Madhrui Martinez MD [Primary Care Provider] -
--- NOTE | 2018-09-22 05:43 | ED.DEP ---
ED Disposition - Plan for ED Patient: Instructions: ED Panic Attack Referrals: Madhuri Martinez MD [Primary Care Provider] -
[2018-09-22 06:37] VITALS: PULSE 97; RESP 18
== END 2018-09-22 06:44 | disposition home or self-care (01) ==
LOC: ED 05:07
PROVIDERS: Emergency Provider Emergency Medicine; Family Provider Family Medicine; PCP Family Medicine
DX: F45.8 Other somatoform disorders (principal); E05.00 Thyrotoxicosis with diffuse goiter without thyrotoxic crisis or storm; Z91.09 Other allergy status, other than to drugs and biological substances; Z79.899 Other long term (current) drug therapy
CPT/HCPCS: 99282; A4216

== ENCOUNTER → 2018-09-23 13:34 | Outpatient (CLI) | payer BC, SELFPAY ==
[2018-09-22 04:38] VITALS: BMI 18.8
[2018-09-23 16:07] LABS: Free T3 2.4 pg/mL (2.18-3.98); T4 Free Direct 1.19 ng/dL (0.76-1.46); Thyroid Stim Hormone (TSH) 0.62 uIU/mL (0.358-3.74)
== END ==
PROVIDERS: Family Provider Family Medicine; PCP Family Medicine; Visit Provider Family Medicine
DX: E03.9 Hypothyroidism, unspecified (principal)
CPT/HCPCS: 36415; 84439; 84443; 84481

== ENCOUNTER → 2018-12-10 13:17 | Outpatient (CLI) | payer BC, SELFPAY ==
[2018-12-10 15:47] LABS: Absolute Lymphocyte Count 0.81 X10^3/ul (0.83-4.51); Absolute Neutrophil Count 3.4 X10^3/uL (2.0-7.7); Basophil# 0.01 X10^3/uL; Basophil% 0.2 % (0-1); Eosinophil# 0.01 X10^3/uL; Eosinophils% 0.2 % (0-5); Hematocrit 44.4 % (37-47); Hemoglobin 14.9 g/dl (12.0-15.0); Lymphocyte # 0.81 X10^3/ul (4.0); Lymphocyte % 16.7 % (19-41); Mean Corp Hgb Conc 33.6 g/gl (32-36); Mean Corpuscular Hgb 28.4 pg (27.0-32.0); Mean Corpuscular Volume 84.7 fL (81-99); Mean Platelet Vol. 10.9 fl (6.2-12.0); Monocyte# 0.58 X10^3/uL; Monocyte% 11.9 % (0-10); Neutrophil # 3.44 X10^3/uL (2.7-7.7); Neutrophil % 70.8 % (47-70); Platelet Count 147 K/mm3 (150-450); RBC Distribution Width CV 13.3 % (11.6-14.6); RBC Distribution Width SD 40.4 fl (35.1-43.9); Red Blood Count 5.24 M/mm3 (4.2-5.4); White Blood Count 4.9 K/mm3 (4.4-11.0)
[2018-12-10 15:49] LABS: POSITIVE COUNT NO; POSITIVE DIFFERENTIAL NO; POSITIVE MORPHOLOGY NO
[2018-12-10 16:09] LABS: AST(SGOT) 15 U/L (15-37); Alanine Aminotransfer ALT/SGPT 22 U/L (13-56); Albumin, Serum 3.7 g/dL (3.2-5.0); Alkaline Phosphatase 72 U/L (45-117); Globulin 3.2 g/dL (2.2-4.2); Lipase 112 U/L (73-393); Protein, Total 6.9 g/dL (6.4-8.2)
== END ==
PROVIDERS: Family Provider Family Medicine; PCP Family Medicine; Visit Provider Family Medicine
DX: R10.11 Right upper quadrant pain (principal)
CPT/HCPCS: 36415; 80076; 83690; 85025; 86140

== ENCOUNTER → 2018-12-11 10:29 | Outpatient (CLI) | payer BC, SELFPAY ==
--- NOTE | 2018-12-11 10:38 | US_ITS ---
STUDY: ABDOMINAL ULTRASOUND - RIGHT UPPER QUADRANT REASON FOR VISIT: Female, 28 years old. Abdominal pain. TECHNIQUE: Ultrasound evaluation of the right upper quadrant was performed with real-time and static griffith-scale imaging. TECHNICAL QUALITY: Adequate. COMPARISON: None. FINDINGS: Liver: The liver measures 11.8 cm. There is normal echogenicity of the liver. The bile ducts are within normal limits. There is hepatic color flow. The direction of portal flow is hepatopetal. There is no demonstrated mass lesion. Gallbladder: Normal distended gallbladder. The gallbladder wall measures 2.1 mm. There is a negative sonographic Wing's sign. There is no pericholecystic fluid. There are at least two gallbladder polyps, the largest measuring 3.5 x 4.1 x 6.3 mm. Common Bile Duct (C.B.D.): The common bile duct measures 2.9 mm. Pancreas: Normal size of the head, body and tail of the pancreas. There is normal echogenicity of the pancreas. There is no demonstrated pancreatic mass or cyst. Right Kidney: Normal size of the right kidney. The right kidney measures 10.5 cm in length. Normal renal cortex. There is no demonstrated renal mass or cyst. There is no right hydronephrosis. US/Abdomen Limited IMPRESSION: No acute intra-abdominal process. Gallbladder polyps measuring up to 6.3 mm. Electronically Signed: Vika Berg MD at 16:56 EDT Tel , Service support ,
== END ==
PROVIDERS: Family Provider Family Medicine; PCP Family Medicine; Referring Provider Family Medicine; Visit Provider Family Medicine
DX: R10.11 Right upper quadrant pain (principal)
CPT/HCPCS: 76705

== ENCOUNTER → 2019-04-08 10:50 | Outpatient (CLI) | payer BC, SELFPAY ==
[2019-04-08 13:03] LABS: T4 Free Direct 1.01 ng/dL (0.76-1.46); Thyroid Stim Hormone (TSH) 1.65 uIU/mL (0.358-3.74)
== END ==
PROVIDERS: Family Provider Family Medicine; PCP Family Medicine; Visit Provider Family Medicine
DX: E03.9 Hypothyroidism, unspecified (principal)
CPT/HCPCS: 36415; 84439; 84443; 84481

== ENCOUNTER → 2019-12-08 11:37 | Outpatient (CLI) | payer BC, SELFPAY ==
[2019-12-08 12:56] LABS: Free T3 2.8 pg/mL (2.18-3.98); T4 Free Direct 1.07 ng/dL (0.76-1.46); Thyroid Stim Hormone (TSH) 0.55 uIU/mL (0.358-3.74)
== END ==
PROVIDERS: PCP Family Medicine; Referring Provider Family Medicine; Visit Provider Family Medicine
DX: E03.9 Hypothyroidism, unspecified (principal)
CPT/HCPCS: 36415; 84439; 84443; 84481